=== PATIENT | male | born 1990 | race Caucasian/White ===

== ENCOUNTER 2017-11-18 11:17 | Emergency (ER) | payer BC ==
[2017-11-18] MEDS ORDERED: Sodium Chloride 0.9% 1,000 ML IV ONE (11:18)
--- NOTE | 2017-11-18 11:19 | EDM.PDOC ---
ED HPI GENERAL MEDICAL PROBLEM - General Stated Complaint: ABD PAIN Time Seen by Provider: 11/18/17 11:18 Source of Information: Reports: Patient History Limitations: Reports: No Limitations - History of Present Illness INITIAL COMMENTS - FREE TEXT/NARRATIVE: HISTORY AND PHYSICAL: History of present illness: Patient is a 27-year-old male who presents to the emergency room today with complaints of middle to right lower quadrant pain x 2-3 days. He states that " it hurts when I push in [right lower quadrant]". His appetite has decreased. States he has had some acid reflux type sytmpomts as well. He denies any fever, chills, chest pain or shortness of breath. Denies any nausea, vomiting, change in his urine/bowel pattern, and no blood in stools/ urine. Last ate or drank at Review of systems: As per history of present illness and below otherwise all systems reviewed and negative. Past medical history: As per history of present illness and as reviewed below otherwise noncontributory. Surgical history: As per history of present illness and as reviewed below otherwise noncontributory. Social history: No reported history of drug or alcohol abuse. Family history: As per history of present illness and as reviewed below otherwise noncontributory. Physical exam: General: Well-developed and well-nourished 27-year-old male. Alert and oriented. Nontoxic appearing and in no acute distress. HEENT: Atraumatic, normocephalic, pupils equal and reactive bilaterally, negative for conjunctival pallor or scleral icterus, mucous membranes moist, throat clear, neck supple, nontender, trachea midline. No drooling or trismus noted. No meningeal signs Lungs: Clear to auscultation, breath sounds equal bilaterally, chest nontender. Heart: S1S2, regular rate and rhythm without overt murmur Abdomen: Soft, nondistended, mid abdominal and right lower quadrant tenderness - +rebound tenderness. Negative for masses or hepatosplenomegaly. Negative for costovertebral tenderness. Pelvis: Stable nontender. Genitourinary: Deferred. Rectal: Deferred. Skin: Intact, warm, dry. No lesions or rashes noted. Extremities: Atraumatic, negative for cords or calf pain. Neurovascular unremarkable. Neuro: Awake, alert, oriented. Cranial nerves II through XII unremarkable. Cerebellum unremarkable. Motor and sensory unremarkable throughout. Exam nonfocal. Notes: Vital signs have been reviewed by me. Patient appears comfortable on the cot. I did offer him pain medication which he declined. Lab work is unremarkable. CT shows a normal appendix but with prominement mesenteric lymph nodes noted to the right lower quadrant (possible mesenteric adenitis). Diagnostics: CBC, CMP, UA, CT abdomen and pelvis Therapeutics: IV fluids, Zofran, Toradol Prescription: None Impression: Abdominal Pain Plan: 1. Cedar diet for the next 24-48 hours; advance as tolerated. Increase your oral fluids. 2. Tylenol and/or ibuprofen as needed for pain management. 3. Follow up with your primary care provider in the next 1-2 days. Return to the ED as needed and as discussed. Definitive disposition and diagnosis as appropriate pending reevaluation and review of above. Duration: Day(s): Location: Reports: Abdomen Right Abdomen Pain Score (Numeric/FACES): 0 - Related Data Allergies Allergy/AdvReac Type Severity Reaction Status Date / Time No Known Allergies Allergy Verified 11/18/17 11:48 Home Meds: Home Meds . [No Known Home Meds] 11/29/13 [History] Past Medical History - Past Health History Medical/Surgical History: Denies Medical/Surgical History ED ROS GENERAL - Review of Systems Review Of Systems: ROS reveals no pertinent complaints other than HPI. ED EXAM, GI/ABD - Physical Exam Exam: See Below (See dictation) Course - Vital Signs Last Recorded V/S: Last Vital Signs Temp 97.5 F 11/18/17 11:28 Pulse 82 11/18/17 11:28 Resp 20 11/18/17 11:28 BP 149/92 H 11/18/17 11:28 Pulse Ox 96 11/18/17 11:28 - Orders/Labs/Meds Orders: Active Orders 24 hr Category Date Time Status Abdomen Pelvis w Cont [CT] Stat Exams 11/18/17 11:34 Taken UA W/MICROSCOPIC [URIN] Stat Lab 11/18/17 11:19 Ordered Labs: Laboratory Tests 11/18/17 11/18/17 11/18/17 Range/Units 11:40 11:40 11:40 WBC 7.86 (4.0-11.0) K/uL RBC 5.08 (4.50-5.90) M/uL Hgb 15.7 (13.0-17.0) g/dL Hct 45.3 (38.0-50.0) % MCV 89.2 (80.0-98.0) fL MCH 30.9 (27.0-32.0) pg MCHC 34.7 (31.0-37.0) g/dL RDW Std Deviation 45.0 (28.0-62.0) fl RDW Coeff of Ricci 14 (11.0-15.0) % Plt Count 194 (150-400) K/uL MPV 11.60 (7.40-12.00) fL Neut % (Auto) 69.5 (48.0-80.0) % Lymph % (Auto) 20.4 (16.0-40.0) % Geary % (Auto) 8.5 (0.0-15.0) % Eos % (Auto) 1.5 (0.0-7.0) % Baso % (Auto) 0.1 (0.0-1.5) % Neut # (Auto) 5.5 (1.4-5.7) K/uL Lymph # (Auto) 1.6 (0.6-2.4) K/uL Geary # (Auto) 0.7 (0.0-0.8) K/uL Eos # (Auto) 0.1 (0.0-0.7) K/uL Baso # (Auto) 0.0 (0.0-0.1) K/uL Nucleated RBC % 0.0 /100WBC Nucleated RBCs # 0 K/uL Sodium 139 (136-148) mmol/L Potassium 4.2 (3.5-5.1) mmol/L Chloride 104 (98-107) mmol/L Carbon Dioxide 26.6 (21.0-32.0) mmol/L BUN 11 (7.0-18.0) mg/dL Creatinine 1.0 (0.8-1.3) mg/dL Est Cr Clr Drug Dosing 121.79 mL/min Estimated GFR (MDRD) > 60.0 ml/min Glucose 96 (74-106) mg/dL Calcium 9.5 (8.5-10.1) mg/dL Total Bilirubin 0.3 (0.2-1.0) mg/dL AST 15 (15-37) IU/L ALT 21 (14-63) IU/L Alkaline Phosphatase 55 (46-116) U/L Total Protein 7.6 (6.4-8.2) g/dL Albumin 4.1 (3.4-5.0) g/dL Globulin 3.5 (2.0-3.5) g/dL Albumin/Globulin Ratio 1.2 L (1.3-2.8) Amylase 34 (25-115) U/L Lipase 117 (73-393) U/L H. pylori IgG Antibody (NEG) 11/18/17 Range/Units 11:40 WBC (4.0-11.0) K/uL RBC (4.50-5.90) M/uL Hgb (13.0-17.0) g/dL Hct (38.0-50.0) % MCV (80.0-98.0) fL MCH (27.0-32.0) pg MCHC (31.0-37.0) g/dL RDW Std Deviation (28.0-62.0) fl RDW Coeff of Ricic (11.0-15.0) % Plt Count (150-400) K/uL MPV (7.40-12.00) fL Neut % (Auto) (48.0-80.0) % Lymph % (Auto) (16.0-40.0) % Geary % (Auto) (0.0-15.0) % Eos % (Auto) (0.0-7.0) % Baso % (Auto) (0.0-1.5) % Neut # (Auto) (1.4-5.7) K/uL Lymph # (Auto) (0.6-2.4) K/uL Geary # (Auto) (0.0-0.8) K/uL Eos # (Auto) (0.0-0.7) K/uL Baso # (Auto) (0.0-0.1) K/uL Nucleated RBC % /100WBC Nucleated RBCs # K/uL Sodium (136-148) mmol/L Potassium (3.5-5.1) mmol/L Chloride (98-107) mmol/L Carbon Dioxide (21.0-32.0) mmol/L BUN (7.0-18.0) mg/dL Creatinine (0.8-1.3) mg/dL Est Cr Clr Drug Dosing mL/min Estimated GFR (MDRD) ml/min Glucose (74-106) mg/dL Calcium (8.5-10.1) mg/dL Total Bilirubin (0.2-1.0) mg/dL AST (15-37) IU/L ALT (14-63) IU/L Alkaline Phosphatase (46-116) U/L Total Protein (6.4-8.2) g/dL Albumin (3.4-5.0) g/dL Globulin (2.0-3.5) g/dL Albumin/Globulin Ratio (1.3-2.8) Amylase (25-115) U/L Lipase (73-393) U/L H. pylori IgG Antibody NEGATIVE (NEG) Meds: Medications Discontinued Medications Generic Name Dose Route Start Last Admin Trade Name Freq PRN Reason Stop Dose Admin Sodium Chloride 1,000 mls @ 999 mls/hr 11/18/17 11:18 11/18/17 11:48 Normal Saline IV 11/18/17 12:18 999 mls/hr STAT ONE Administration Iopamidol 100 ml 11/18/17 12:26 11/18/17 12:44 Isovue Multipack-370 (76%) IVPUSH 11/18/17 12:27 100 ml ONETIME ONE Administration Ketorolac Tromethamine 30 mg 11/18/17 11:34 11/18/17 11:48 Toradol IVPUSH 11/18/17 11:35 30 mg ONETIME ONE Administration Ondansetron HCl 4 mg 11/18/17 11:34 11/18/17 11:48 Zofran IVPUSH 11/18/17 11:35 4 mg ONETIME ONE Administration Departure - Departure Time of Disposition: 13:39 Disposition: Home, Self-Care 01 Clinical Impression: Abdominal pain - Discharge Information Instructions: Abdominal Pain, Adult, [id number], Mesenteric Adenitis, Adult Referrals: PCP,None [Primary Care Provider] - Additional Instructions: The following information is given to patients seen in the emergency department who are being discharged to home. This information is to outline your options for follow-up care. We provide all patients seen in our emergency department with a follow-up referral. The need for follow-up, as well as the timing and circumstances, are variable depending upon the specifics of your emergency department visit. If you don't have a primary care physician on staff, we will provide you with a referral. We always advise you to contact your personal physician following an emergency department visit to inform them of the circumstance of the visit and for follow-up with them and/or the need for any referrals to a consulting specialist. The emergency department will also refer you to a specialist when appropriate. This referral assures that you have the opportunity for follow-up care with a specialist. All of these measure are taken in an effort to provide you with optimal care, which includes your follow-up. Under all circumstances we always encourage you to contact your private physician who remains a resource for coordinating your care. When calling for follow-up care, please make the office aware that this follow-up is from your recent emergency room visit. If for any reason you are refused follow-up, please contact the [facility] Emergency Department at and asked to speak to the emergency department charge nurse. [facility] Primary Care [address] [place] [address] 1. Cedar diet for the next 24-48 hours; advance as tolerated. Increase your oral fluids. 2. Tylenol and/or ibuprofen as needed for pain management. 3. Follow up with your primary care provider in the next 1-2 days. Return to the ED as needed and as discussed. - My Orders Last 24 Hours: My Active Orders 11/18/17 11:19 UA W/MICROSCOPIC [URIN] Stat 11/18/17 11:34 Abdomen Pelvis w Cont [CT] Stat - Assessment/Plan Last 24 Hours: My Active Orders 11/18/17 11:19 UA W/MICROSCOPIC [URIN] Stat 11/18/17 11:34 Abdomen Pelvis w Cont [CT] Stat
[2017-11-18] MEDS ORDERED: Ondansetron 4 MG/2 ML SDV IVPUSH ONE (11:34)
[2017-11-18] MEDS ORDERED: Ketorolac 30 MG/ML SDV IVPUSH ONE (11:34)
[2017-11-18 12:18] LABS: CHLORIDE,CL 104 mmol/L (98-107); SODIUM,NA 139 mmol/L (136-148)
[2017-11-18] MEDS ORDERED: Iopamidol 755 MG/ML 200 ML Multipack Bottle IVPUSH ONE (12:26)
--- NOTE | 2017-11-19 09:37 | CT ---
EXAM DATE: 11/18/17 PATIENT'S AGE: 27 Patient: WATSON CLARK Facility: [place], [place] Site . Site : 1990 Study: CT Abdomen/Pelvis [id number]/12/2018 12:53:49 PM Ordering Physician: Doctor Mcknight Final Report: INDICATION: Right lower quadrant pain. TECHNIQUE: Volumetric helical scanning of the abdomen and pelvis was performed with 100 cc of Isovue 370 contrast material IV. Coronal and sagittal reconstructions were obtained. COMPARISON: None. FINDINGS: There is no evidence of bowel obstruction or inflammation. The appendix is normal. No free fluid or free air is demonstrated. Some prominent mesenteric lymph nodes in the right lower quadrant are noted with the largest on image 91 of series 201, measuring 1.2 x 1.2 x 1.0 cm. No lymphadenopathy is evident otherwise. The liver is normal in size, shape and attenuation. No bile duct dilation is evident. The spleen is within normal limits. The adrenal glands are unremarkable. The pancreas is within normal limits. The kidneys are unremarkable. The prostate is within normal limits. The lung bases are clear. The heart is normal in size. IMPRESSION: Question mesenteric adenitis in the right lower quadrant. Otherwise unremarkable. Please note that all CT scans at this facility use dose modulation, iterative reconstruction, and/or weight-based dosing when appropriate to reduce radiation dose to as low as reasonably achievable. Dictated by Luciano Carias MD @ Nov 18 2017 1:26PM (Electronic Signature) Report Signed by Proxy. [facility]
== END 2017-11-18 13:44 | disposition home or self-care (01) ==
LOC: MW.ED 11:17
DX: R10.813 Right lower quadrant abdominal tenderness (principal)
CPT/HCPCS: 36415; 74177; 80053; 82150; 83690; 85025; 86677; 96361; 96374; 96375; 99284; J1885; J2405; J7040; Q9967; 99283

== ENCOUNTER 2018-09-30 14:21 | Emergency (ER) | payer BC ==
--- NOTE | 2018-09-30 15:04 | EDM.PDOC ---
<Louisa Berry - Last Filed: 09/30/18 15:23> ED HPI GENERAL MEDICAL PROBLEM - General Chief Complaint: Lower Extremity Injury/Pain Stated Complaint: LT FOOT PAIN Time Seen by Provider: 09/30/18 14:24 Source of Information: Reports: Patient History Limitations: Reports: No Limitations - History of Present Illness INITIAL COMMENTS - FREE TEXT/NARRATIVE: HISTORY AND PHYSICAL: History of present illness: 28-year-old male presents with complaints of left ankle foot pain after a piece of equipment fell on it a couple days ago. He indicates he has been using crutches at home applying ice and elevating and chose not to come into the emergency department until today as he wanted the swelling to go down. Soft tissue swelling continues to be noted around the ankle. No ecchymosis is noted however there is some pink tones to the lower extremity from where the equipment fell and rolled down his leg. He has been using naproxen and ibuprofen at home for pain control and feels that is controlling his pain adequately. Review of systems: As per history of present illness and below otherwise all systems reviewed and negative. Past medical history: As per history of present illness and as reviewed below otherwise noncontributory. Surgical history: As per history of present illness and as reviewed below otherwise noncontributory. Social history: No reported history of drug or alcohol abuse. Family history: As per history of present illness and as reviewed below otherwise noncontributory. Physical exam: General: Well-nourished well-developed 28-year-old male is alert and oriented. In no acute distress. HEENT: Atraumatic, normocephalic, pupils reactive, negative for conjunctival pallor or scleral icterus, mucous membranes moist, throat clear, neck supple, nontender, trachea midline. Lungs: Clear to auscultation, breath sounds equal bilaterally, chest nontender. Heart: S1S2, regular, negative for clicks, rubs, or JVD. Abdomen: Soft, nondistended, nontender. Negative for masses or hepatosplenomegaly. Negative for costovertebral tenderness. Pelvis: Stable nontender. Genitourinary: Deferred. Rectal: Deferred. Extremities: Pain with palpation of the etiology and lateral malleolus of the left lower extremity. Mild to minimal tenderness with palpation of the foot. He is able to flex and extend although this does cause pain. Generalized mild soft tissue swelling of the anterior foot and ankle, negative for cords or calf pain. Neurovascular unremarkable. Skin: Intact, warm, dry. No lesions, rashes are noted. Neuro: Awake, alert, oriented. Cranial nerves II through XII unremarkable. Cerebellum unremarkable. Motor and sensory unremarkable throughout. Exam nonfocal. Notes: Patient presents today for left ankle pain in no acute distress. Indicates he has been using crutches however left them in the car to come into the ED. X-ray shows a nondisplaced fracture involving the distal calf assess of the second metatarsal. Will place patient in a cam walker boot and provided crutches. Encouraged him to follow up with podiatry or the orthopedic provider for reevaluation and further management. He voices understanding and is agreeable to plan of care. Denies any further questions or concerns at this time. Diagnostics: Left ankle and foot x-ray Therapeutics: Kathryn (#20) Impression: Left ankle injury Left nondisplaced fracture of the distal metaphysis of the second metatarsal Plan: 1. Continue to elevate and ice and rest extremity. Continue to use crutches as indicated. 2. Continue to use ibuprofen naproxen or Tylenol for discomfort previously discussed. [place] for moderate to severe pain. This medication may cause drowsiness so do not take it while driving or needing to be functioning outside of the house. 3. Follow-up with orthopedics or podiatry as previously discussed. Please call to set up this appointment and return to ED as previously discussed Definitive disposition and diagnosis as appropriate pending reevaluation and review of above. left foot & ankle Pain Score (Numeric/FACES): 7 - Related Data Allergies Allergy/AdvReac Type Severity Reaction Status Date / Time No Known Allergies Allergy Verified 09/30/18 14:34 Home Meds: Home Meds . [No Known Home Meds] 11/29/13 [History] Past Medical History - Past Health History Medical/Surgical History: Denies Medical/Surgical History - Infectious Disease History Infectious Disease History: Reports: Chicken Pox - Past Surgical History Other Musculoskeletal Surgeries/Procedures:: elbow surgery when he was 8 Social & Family History - Family History Family Medical History: Noncontributory - Tobacco Use Smoking Status *Q: Current Every Day Smoker Years of Tobacco use: 12 Packs/Tins Daily: 1 - Caffeine Use Caffeine Use: Reports: Coffee - Recreational Drug Use Recreational Drug Use: Yes Drug Use in Last 12 Months: Yes Recreational Drug Type: Reports: Marijuana/Hashish Recreational Drug Use Frequency: Daily Review of Systems - Review of Systems Review Of Systems: ROS reveals no pertinent complaints other than HPI. ED EXAM, GENERAL - Physical Exam Exam: See Below (See dictation) Course - Vital Signs Last Recorded V/S: Last Vital Signs Temp 98.3 F 09/30/18 14:31 Pulse 85 09/30/18 14:31 Resp 16 09/30/18 14:31 BP 153/89 H 09/30/18 14:31 Pulse Ox 95 09/30/18 14:31 - Orders/Labs/Meds Orders: Active Orders 24 hr Category Date Time Status DME for Discharge [COMM] Stat Oth 09/30/18 15:22 Ordered Departure - Departure Time of Disposition: 15:26 Disposition: Home, Self-Care 01 Clinical Impression: Left ankle injury Qualifiers: Encounter type: initial encounter Qualified Code(s): S99.912A - Unspecified injury of left ankle, initial encounter Metatarsal fracture Qualifiers: Encounter type: initial encounter Metatarsal bone: second Fracture type: closed Fracture alignment: nondisplaced Laterality: left Qualified Code(s): S92.325A - Nondisplaced fracture of second metatarsal bone, left foot, initial encounter for closed fracture - Discharge Information Instructions: Metatarsal Fracture Referrals: PCP,None [Primary Care Provider] - Forms: ED Department Discharge Additional Instructions: My general discharge The following information is given to patients seen in the emergency department who are being discharged to home. This information is to outline your options for follow-up care. We provide all patients seen in our emergency department with a follow-up referral. The need for follow-up, as well as the timing and circumstances, are variable depending upon the specifics of your emergency department visit. If you don't have a primary care physician on staff, we will provide you with a referral. We always advise you to contact your personal physician following an emergency department visit to inform them of the circumstance of the visit and for follow-up with them and/or the need for any referrals to a consulting specialist. The emergency department will also refer you to a specialist when appropriate. This referral assures that you have the opportunity for follow-up care with a specialist. All of these measure are taken in an effort to provide you with optimal care, which includes your follow-up. Under all circumstances we always encourage you to contact your private physician who remains a resource for coordinating your care. When calling for follow-up care, please make the office aware that this follow-up is from your recent emergency room visit. If for any reason you are refused follow-up, please contact the [facility] Emergency Department at and asked to speak to the emergency department charge nurse. [facility] - Primary Care [address] [place] [id number] [facility] Professional [facility] [address] [place] [address], [address] [place] [address] [address] [address] 1. Continue to elevate and ice and rest extremity. Continue to use crutches as indicated. 2. Continue to use ibuprofen naproxen or Tylenol for discomfort previously discussed. [place] for moderate to severe pain. This medication may cause drowsiness so do not take it while driving or needing to be functioning outside of the house. 3. Follow-up with orthopedics or podiatry as previously discussed. Please call to set up this appointment and return to ED as previously discussed - My Orders Last 24 Hours: My Active Orders 09/30/18 15:22 DME for Discharge [COMM] Stat - Assessment/Plan Last 24 Hours: My Active Orders 09/30/18 15:22 DME for Discharge [COMM] Stat <Ginny Augustine E - Last Filed: 09/30/18 19:50> ED HPI GENERAL MEDICAL PROBLEM - History of Present Illness INITIAL COMMENTS - FREE TEXT/NARRATIVE: I did physically see this patient and evaluate myself. I agree with the above dictation and physical assessment. We discussed the need for appropriate follow- up with the orthopedic provider. Cam walker boot and crutches given along with education. Patient refuses the cam walker boot, regardless of education. Medication and supportive care measures were reviewed and discussed. He denies any further questions or concerns at this time.
--- NOTE | 2018-09-30 15:12 | CR ---
EXAMINATION: Left foot and left ankle HISTORY: Pain COMPARISON: None TECHNIQUE: 2 views of the left foot and 3 views of the left ankle FINDINGS: There is a nondisplaced fracture involving the distal metaphysis of the second metatarsal. The remaining osseous structures and joint spaces are preserved. Bone mineralization is otherwise normal. Ankle mortise and talar dome are intact. IMPRESSION: 1. Nondisplaced distal second metatarsal fracture.
== END 2018-09-30 15:48 | disposition home or self-care (01) ==
LOC: MW.ED 14:21
DX: S92.325A Nondisplaced fracture of second metatarsal bone, left foot, initial encounter for closed fracture (principal); S99.912A Unspecified injury of left ankle, initial encounter; F17.210 Nicotine dependence, cigarettes, uncomplicated; W20.8XXA Other cause of strike by thrown, projected or falling object, initial encounter
CPT/HCPCS: 73610-26-LT; 73610-LT; 73620-26-LT; 73620-LT; 99283; 99283-25

== ENCOUNTER 2019-06-08 19:04 | Inpatient (IN) | payer MEDICAID ==
--- NOTE | 2019-06-08 19:53 | EDM.PDOC ---
ED HPI GENERAL MEDICAL PROBLEM - General Chief Complaint: General Stated Complaint: POSSIBLE HERNIA Time Seen by Provider: 06/08/19 19:22 Source of Information: Reports: Patient - History of Present Illness INITIAL COMMENTS - FREE TEXT/NARRATIVE: CC HPI: This is a pleasant 28-year-old male who presents sudden onset right inguinal swelling and pain. No vomiting no fever no dysuria or hematuria no urethral discharge PMHX/PSHX: Negative Social History: Negative for tobacco, negative for alcohol, negative for street drugs or marijuana Family history: Hypertension ROS: see chart PE: VS afebrile vital signs stable General: No apparent distress Head: Atraumatic normocephalic no lumps bumps or bruises Eyes: EOMI PERRLA Ears: TMs intact no hemotympanum no signs of infection no mastoid tenderness Nose: No epistaxis nares patent no septal wall hematoma Throat: No pharyngeal erythema or exudate no tonsillar enlargement Neck: Supple, no cervical lymphadenopathy Chest wall: No point tenderness Heart: Regular rate and rhythm without murmur gallop or rub Lungs: Clear to auscultation and percussion without rales rhonchi or wheeze Abdomen: Soft nontender nondistended without guarding rigidity or rebound patient has some's slight swelling over the right inguinal ligament Genitalia: He is circumcised. No signs of an indirect hernia. No testicular tenderness no scrotal edema Neck: No spinal point tenderness full range of motion in all 6 directions Back: No spinal paraspinal or CVA tenderness Extremities: full rom through out. no effusions skin: Warm dry intact no rashes neurologic: cranial nerves II through XII intact. No focal motor or sensory deficits noted MDM: Differential diagnosis: Spignalien hernia, direct inguinal hernia ED course: Labs remarkable CT scan was obtained to rule out a hernia however that suggested the possibility of a DVT. I then ordered an ultrasound which showed a mass behind the vessels which may be causing a mass-effect caused a localized thrombus which is nonocclusive the question is that mass could be a abscess or necrotic lymph node is unclear so I consulted the general surgeon and he asked me to admit the patient to hospitalist service. He said that we could let the hospitalist decide whether or not to start the patient on antibiotics. Patient is tender in that area but is otherwise stable for admission to the floor Diagnosis: Abscess versus necrotic lymph node to right inguinal area Disposition: Admit Right Lower Abdomen Pain Score (Numeric/FACES): 2 - Related Data Allergies Allergy/AdvReac Type Severity Reaction Status Date / Time No Known Allergies Allergy Verified 06/08/19 19:14 Home Meds: Home Meds . [No Known Home Meds] 11/29/13 [History] Past Medical History - Past Health History Medical/Surgical History: Denies Medical/Surgical History - Infectious Disease History Infectious Disease History: Reports: None - Past Surgical History Other Musculoskeletal Surgeries/Procedures:: elbow surgery when he was 8 Social & Family History - Family History Family Medical History: Noncontributory - Tobacco Use Smoking Status *Q: Former Smoker Used Tobacco, but Quit: Yes Month/Year Tobacco Last Used: 2019 - Caffeine Use Caffeine Use: Reports: Coffee - Recreational Drug Use Recreational Drug Use: Yes Recreational Drug Type: Reports: Marijuana/Hashish Other Recreational Drug Type: used today ED ROS GENERAL - Review of Systems Review Of Systems: Comprehensive ROS is negative, except as noted in HPI. ED EXAM, GENERAL - Physical Exam Exam: See Below Free Text/Narrative:: See my H&P Course - Vital Signs Last Recorded V/S: Last Vital Signs Temp 36.7 C 06/08/19 23:20 Pulse 66 06/08/19 23:20 Resp 16 06/08/19 23:20 BP 135/77 06/08/19 23:20 Pulse Ox 97 06/08/19 23:20 - Orders/Labs/Meds Orders: Active Orders 24 hr Category Date Time Status CRP [C-REACTIVE PROTEIN] [CHEM] Stat Lab 06/08/19 23:34 Ordered LACTATE WITH REFLEX [BG] Stat Lab 06/08/19 23:34 Ordered SEDIMENTATION RATE AUTO [HEME] Stat Lab 06/08/19 23:33 Ordered Labs: Laboratory Tests 06/08/19 06/08/19 Range/Units 19:40 19:40 WBC 11.32 H (4.0-11.0) K/uL RBC 4.56 (4.50-5.90) M/uL Hgb 14.0 (13.0-17.0) g/dL Hct 42.7 (38.0-50.0) % MCV 93.6 (80.0-98.0) fL MCH 30.7 (27.0-32.0) pg MCHC 32.8 (31.0-37.0) g/dL RDW Std Deviation 47.1 (28.0-62.0) fl RDW Coeff of Ricci 14 (11.0-15.0) % Plt Count 215 (150-400) K/uL MPV 11.90 (7.40-12.00) fL Neut % (Auto) 72.3 (48.0-80.0) % Lymph % (Auto) 19.2 (16.0-40.0) % [place] % (Auto) 7.9 (0.0-15.0) % Eos % (Auto) 0.4 (0.0-7.0) % Baso % (Auto) 0.2 (0.0-1.5) % Neut # (Auto) 8.2 H (1.4-5.7) K/uL Lymph # (Auto) 2.2 (0.6-2.4) K/uL [place] # (Auto) 0.9 H (0.0-0.8) K/uL Eos # (Auto) 0.0 (0.0-0.7) K/uL Baso # (Auto) 0.0 (0.0-0.1) K/uL Nucleated RBC % 0.0 /100WBC Nucleated RBCs # 0 K/uL Sodium 141 (136-148) mmol/L Potassium 3.9 (3.5-5.1) mmol/L Chloride 105 (98-107) mmol/L Carbon Dioxide 27.2 (21.0-32.0) mmol/L BUN 11 (7.0-18.0) mg/dL Creatinine 0.8 (0.8-1.3) mg/dL Est Cr Clr Drug Dosing 159.83 mL/min Estimated GFR (MDRD) > 60.0 ml/min Glucose 91 (74-106) mg/dL Calcium 9.3 (8.5-10.1) mg/dL Meds: Medications Discontinued Medications Generic Name Dose Route Start Last Admin Trade Name Freq PRN Reason Stop Dose Admin Iopamidol 100 ml 06/08/19 20:11 06/08/19 20:33 Isovue Multipack-370 (76%) IVPUSH 06/08/19 20:12 100 ml ONETIME STA Administration Departure - Departure Time of Disposition: 23:39 Disposition: Admitted As Inpatient 66 Clinical Impression: Abdominal pain Qualifiers: Abdominal location: right lower quadrant Qualified Code(s): R10.31 - Right lower quadrant pain - Discharge Information Referrals: PCP,None [Primary Care Provider] - Forms: ED Department Discharge Sepsis Event Note - Evaluation Sepsis Screening Result: No Definite Risk - Focused Exam Vital Signs: Vital Signs Temp Pulse Resp BP Pulse Ox 06/08/19 23:20 36.7 C 66 16 135/77 97 06/08/19 21:00 74 16 134/73 96 06/08/19 19:14 36.3 C 74 17 132/82 97 Date Exam was Performed: 06/08/19 Time Exam was Performed: 23:35 - My Orders Last 24 Hours: My Active Orders 06/08/19 23:33 SEDIMENTATION RATE AUTO [HEME] Stat 06/08/19 23:34 CRP [C-REACTIVE PROTEIN] [CHEM] Stat LACTATE WITH REFLEX [BG] Stat - Assessment/Plan Last 24 Hours: My Active Orders 06/08/19 23:33 SEDIMENTATION RATE AUTO [HEME] Stat 06/08/19 23:34 CRP [C-REACTIVE PROTEIN] [CHEM] Stat LACTATE WITH REFLEX [BG] Stat
[2019-06-08 20:04] LABS: BLOOD UREA NITROGEN,BUN 11 mg/dL (7.0-18.0); CARBON DIOXIDE,CO2 27.2 mmol/L (21.0-32.0); CHLORIDE,CL 105 mmol/L (98-107); GLUCOSE RANDOM 91 mg/dL (74-106); POTASSIUM,K 3.9 mmol/L (3.5-5.1); SODIUM,NA 141 mmol/L (136-148)
[2019-06-08] MEDS ORDERED: Iopamidol 755 MG/ML 200 ML Multipack Bottle IVPUSH STA (20:11)
--- NOTE | 2019-06-08 20:55 | CT ---
CT abdomen and pelvis Technique: Multiple axial sections were obtained from above the dome of the diaphragm inferiorly through the pubic symphysis. Intravenous contrast was utilized. No oral contrast has been given. Comparison: Prior CT abdomen and pelvis exam of 11/18/17. Findings: Visualized lung bases show nothing acute. Liver contains no focal parenchymal abnormality. Spleen appears within normal limits. Adrenal glands show no nodule. Pancreas shows no discrete abnormality. Gallbladder contains no calcified gallstones. Aorta shows no aneurysm. No retroperitoneal adenopathy or mesenteric abnormalities are seen. No pelvic mass or adenopathy is identified. Appendix is seen and appears normal in size. No free fluid or inflammatory change is identified within the abdomen or within the pelvis. Bone window settings were reviewed. No acute osseous finding is seen. Small low density finding is noted within the right inguinal region. This finding measures about 1.6 cm in size. There is surrounding soft tissue density around this finding which extends around the common femoral vessels. There is clot within the right common femoral vein and this low density finding most likely represents dilated common femoral vein containing clot with surrounding inflammatory change. Clot continues into the proximal right superficial femoral vein with distal portions of the clot not being seen on this exam. Impression: 1. Low density area within the right inguinal region believed to represent dilated common femoral vein containing thrombus. Additional thrombus is seen more distally on the right side extending into the proximal superficial femoral vein. Distal extent of this thrombus is not seen on this exam. 2. Inflammatory change is seen around this clot within the right inguinal region. 3. No additional abnormality is seen on CT study of the abdomen and pelvis. Note: Findings compatible with deep venous thrombosis within the visualized right lower extremity. Diagnostic code #5 This report was dictated in [place] Standard Time
--- NOTE | 2019-06-08 23:08 | US ---
HISTORY: Upper right leg pain and swelling. TECHNIQUE: Ultrasound of the right lower extremity deep veins using hernandez-scale, color Doppler, and spectral Doppler. COMPARISON: None. FINDINGS: Common femoral vein and proximal segment of the femoral vein are partially compressible. Vessel lumens are poorly visualized. There is color Doppler signal within at least portions of the lumens of the partially compressible segments of the common femoral and femoral veins. Mid and distal segments of the femoral vein are patent and compressible. Popliteal vein is patent and compressible. - Posterior tibial and peroneal veins are patent. - 3 x 2.5 x 2.3 cm complex hypoechoic process in the right inguinal region. No images of this region were obtained with Doppler imaging. IMPRESSION: 1. Incompletely compressible right common femoral vein and proximal segment of the femoral vein. Vessel lumens are poorly visualized. In correlation with the CT however findings are compatible with nonocclusive DVT. 2. 3 x 2.5 x 2.3 cm complex masslike process in the right inguinal region. This likely corresponds to the hypodense abnormality adjacent to the proximal right common femoral vein on CT. Differential includes subacute hematoma, abscess (possibly related to thrombophlebitis), less likely necrotic lymph node or mass. --- Called to Dr Law Concepcion on 06/08/19 at 2305 hours. Dictated by Everton Linn MD @ Jun 08 2019 10:22PM (Electronically Signed)
[2019-06-09] MEDS ORDERED: Heparin Sodium 5,000 Units/ML Vial IVPUSH ONE ×2 (00:30→18:53)
[2019-06-09] MEDS ORDERED: Heparin Sod,Pork In 0.45% Nacl 25,000 UNIT/500 ML IV.SOLN IV SCH (00:30)
[2019-06-09] MEDS: Heparin Sod,Pork In 0.45% Nacl 25,000 UNIT/500 ML IV.SOLN IV SCH ×2 (00:58→21:37)
[2019-06-09] MEDS ORDERED: Acetaminophen 325 MG Tab PO PRN (01:21)
--- NOTE | 2019-06-09 01:44 | PCM.HP.2 ---
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 In the ED he had a CT scan of the abdomen and pelvis that was suggestive of a DVT of the right common femoral vein with surronding inflammation, Ultrasound of the leg reported incompletely compressable right common femoral vein and a 3 by 2 cm mass like complex in the right inguinal region. Right Lower Abdomen Pain Score (Numeric/FACES): 2 - Related Data Allergies/Adverse Reactions: Allergies Allergy/AdvReac Type Severity Reaction Status Date / Time No Known Allergies Allergy Verified 06/09/19 03:14 Home Medications: Home Meds Clindamycin HCl 300 mg PO TID 5 Days #15 capsule 06/11/19 [Rx] Enoxaparin Sodium [Lovenox] 135 mg SQ DAILY 8 Days #8 ml 06/11/19 [Rx] Warfarin [Coumadin] 10 mg PO DAILY 15 Days #15 tab 06/11/19 [Rx] Past Medical History - Past Health History Medical/Surgical History: Denies Medical/Surgical History - Infectious Disease History Infectious Disease History: Reports: None - Past Surgical History Other Musculoskeletal Surgeries/Procedures:: elbow surgery when he was 8 Social & Family History - Family History Family Medical History: Noncontributory - Tobacco Use Smoking Status *Q: Former Smoker Used Tobacco, but Quit: Yes Month/Year Tobacco Last Used: 2019 - Caffeine Use Caffeine Use: Reports: Coffee - Recreational Drug Use Recreational Drug Use: Yes Recreational Drug Type: Reports: Marijuana/Hashish Other Recreational Drug Type: used today H&P Review of Systems - Review of Systems: Review Of Systems: Comprehensive ROS is negative, except as noted in HPI. Exam - Exam Exam: See Below - Vital Signs Vital Signs: Last Vital Signs Temp 36.7 C 06/08/19 23:20 Pulse 72 06/09/19 00:53 Resp 16 06/09/19 00:53 BP 132/84 06/09/19 00:53 Pulse Ox 97 06/09/19 00:53 Weight: 90.718 kg - Exam General: Alert, Oriented HEENT: Mucosa Moist & [place] Neck: Supple Lungs: Clear to Auscultation, Normal Respiratory Effort Cardiovascular: Regular Rate, Regular Rhythm GI/Abdominal Exam: Normal Bowel Sounds, Soft, Non-Tender (Male) Exam: Other (mild edema and erythem of the right lower inguinal region ). No: Penile Lesions, Scrotal Swelling, Scrotum Tenderness (L), Scrotum Tenderness (R) Extremities: Non-Tender, No Pedal Edema Skin: Warm, Dry, Intact - Patient Data Lab Results Last 24 hrs: Laboratory Results - last 24 hr 06/08/19 06/08/19 06/09/19 Range/Units 19:40 19:40 00:25 WBC 11.32 H (4.0-11.0) K/uL RBC 4.56 (4.50-5.90) M/uL Hgb 14.0 (13.0-17.0) g/dL Hct 42.7 (38.0-50.0) % MCV 93.6 (80.0-98.0) fL MCH 30.7 (27.0-32.0) pg MCHC 32.8 (31.0-37.0) g/dL RDW Std Deviation 47.1 (28.0-62.0) fl RDW Coeff of Ricci 14 (11.0-15.0) % Plt Count 215 (150-400) K/uL MPV 11.90 (7.40-12.00) fL Neut % (Auto) 72.3 (48.0-80.0) % Lymph % (Auto) 19.2 (16.0-40.0) % [place] % (Auto) 7.9 (0.0-15.0) % Eos % (Auto) 0.4 (0.0-7.0) % Baso % (Auto) 0.2 (0.0-1.5) % Neut # (Auto) 8.2 H (1.4-5.7) K/uL Lymph # (Auto) 2.2 (0.6-2.4) K/uL [place] # (Auto) 0.9 H (0.0-0.8) K/uL Eos # (Auto) 0.0 (0.0-0.7) K/uL Baso # (Auto) 0.0 (0.0-0.1) K/uL Nucleated RBC % 0.0 /100WBC Nucleated RBCs # 0 K/uL ESR 10 (0-14) mm/hr Lactate (0.20-2.00) mmol/L Sodium 141 (136-148) mmol/L Potassium 3.9 (3.5-5.1) mmol/L Chloride 105 (98-107) mmol/L Carbon Dioxide 27.2 (21.0-32.0) mmol/L BUN 11 (7.0-18.0) mg/dL Creatinine 0.8 (0.8-1.3) mg/dL Est Cr Clr Drug Dosing 159.83 mL/min Estimated GFR (MDRD) > 60.0 ml/min Glucose 91 (74-106) mg/dL Calcium 9.3 (8.5-10.1) mg/dL C-Reactive Protein (0.00-0.90) mg/dL 06/09/19 06/09/19 Range/Units 00:35 00:35 WBC (4.0-11.0) K/uL RBC (4.50-5.90) M/uL Hgb (13.0-17.0) g/dL Hct (38.0-50.0) % MCV (80.0-98.0) fL MCH (27.0-32.0) pg MCHC (31.0-37.0) g/dL RDW Std Deviation (28.0-62.0) fl RDW Coeff of Ricci (11.0-15.0) % Plt Count (150-400) K/uL MPV (7.40-12.00) fL Neut % (Auto) (48.0-80.0) % Lymph % (Auto) (16.0-40.0) % [place] % (Auto) (0.0-15.0) % Eos % (Auto) (0.0-7.0) % Baso % (Auto) (0.0-1.5) % Neut # (Auto) (1.4-5.7) K/uL Lymph # (Auto) (0.6-2.4) K/uL [place] # (Auto) (0.0-0.8) K/uL Eos # (Auto) (0.0-0.7) K/uL Baso # (Auto) (0.0-0.1) K/uL Nucleated RBC % /100WBC Nucleated RBCs # K/uL ESR (0-14) mm/hr Lactate 0.7 (0.20-2.00) mmol/L Sodium (136-148) mmol/L Potassium (3.5-5.1) mmol/L Chloride (98-107) mmol/L Carbon Dioxide (21.0-32.0) mmol/L BUN (7.0-18.0) mg/dL Creatinine (0.8-1.3) mg/dL Est Cr Clr Drug Dosing mL/min Estimated GFR (MDRD) ml/min Glucose (74-106) mg/dL Calcium (8.5-10.1) mg/dL C-Reactive Protein 6.30 H (0.00-0.90) mg/dL Result Diagrams: 06/11/19 05:59 06/11/19 05:59 Sepsis Event Note - Evaluation Sepsis Screening Result: No Definite Risk - Focused Exam Vital Signs: Vital Signs Temp Pulse Resp BP Pulse Ox 06/09/19 00:53 72 16 132/84 97 06/08/19 23:20 36.7 C 66 16 135/77 97 06/08/19 21:00 74 16 134/73 96 06/08/19 19:14 36.3 C 74 17 132/82 97 Date Exam was Performed: 06/11/19 Time Exam was Performed: 15:07 Problem List Initiated/Reviewed/Updated: Yes Orders Last 24hrs: Active Orders 24 hr Category Date Time Status Admission Status [Patient Status] [ADT] Stat ADT 06/08/19 23:46 Active Oxygen Therapy [RC] PRN Care 06/09/19 01:27 Ordered Up ad Leti [RC] ASDIRECTED Care 06/09/19 01:21 Ordered VTE/DVT Education [RC] PER UNIT ROUTINE Care 06/09/19 01:27 Ordered Vital Signs [RC] Q4H Care 06/09/19 01:27 Ordered Regular Diet [DIET] Diet 06/09/19 Breakfast Ordered BASIC METABOLIC PANEL,BMP [CHEM] AM Lab 06/09/19 05:11 Ordered CBC WITH AUTO DIFF [HEME] AM Lab 06/09/19 05:11 Ordered CULTURE BLOOD [BC] Stat Lab 06/08/19 23:52 Ordered CULTURE BLOOD [BC] Stat Lab 03/01/20 23:52 Ordered DRUG SCREEN, URINE [URCHEM] Stat Lab 06/08/19 23:44 Ordered Acetaminophen [Tylenol] Med 06/09/19 01:21 Ordered 650 mg PO Q4H PRN Heparin Sod,Pork In 0.45% Nacl [Heparin-1/2Ns 25,000 Med 06/09/19 01:00 Active Units/500] 25,000 unit in 500 ml IV TITRATE Pharmacy to Dose - Vancomycin Med 06/09/19 01:15 Ordered 1 dose .XX ASDIRECTED Vancomycin 1 gm Med 06/09/19 00:24 Active Sodium Chloride 0.9% [Normal Saline (AdvBag)] 250 ml IV ONETIME Vancomycin 500 mg Med 06/09/19 01:30 Active Sodium Chloride 0.9% [Normal Saline] 100 ml IV ONETIME Blood Culture x2 Reflex Set [OM.PC] Stat Oth 06/08/19 23:52 Ordered Resuscitation Status Routine Resus Stat 06/09/19 01:21 Ordered Medication Orders Acetaminophen (Tylenol) 650 mg PO Q4H PRN PRN Reason: Pain (Mild 1-3)/fever Vancomycin HCl 1 gm/ Sodium (Chloride) 250 mls @ 166 mls/hr IV ONETIME ONE Stop: 06/09/19 01:54 Last Admin: 06/09/19 00:54 Dose: 166 mls/hr Heparin Sodium/Sodium Chloride (Heparin-1/2ns 25,000 Units/500) 25,000 unit in 500 mls @ 32.658 mls/hr IV TITRATE MELLISSA; Protocol Last Admin: 06/09/19 00:58 Dose: 18 units/kg/hr, 32.658 mls/hr Vancomycin HCl 500 mg/ Sodium (Chloride) 100 mls @ 100 mls/hr IV ONETIME ONE Stop: 06/09/19 02:29 Vancomycin HCl (Pharmacy To Dose - Vancomycin) 1 dose .XX ASDIRECTED MELLISSA Assessment/Plan Comment:: 28 yo male admitted with right femoral DVT with adjacent mass, possible lymph nod or abscess. We will treat with heparin drip and vancomycin. General Surgery has been consulted in the ED.
[2019-06-09 05:56] LABS: BLOOD UREA NITROGEN,BUN 9 mg/dL (7.0-18.0); CARBON DIOXIDE,CO2 27.7 mmol/L (21.0-32.0); CHLORIDE,CL 105 mmol/L (98-107); GLUCOSE RANDOM 90 mg/dL (74-106); POTASSIUM,K 3.7 mmol/L (3.5-5.1); SODIUM,NA 141 mmol/L (136-148)
--- NOTE | 2019-06-09 11:22 | PCM.PN ---
- General Info Date of Service: 06/09/19 Subjective Update: No acute events overnight. Right inguinal pain is tolerable rated 3/10. No chest pain, dyspnea, abdominal pain. - Patient Data Vitals - Most Recent: Last Vital Signs Temp 36.2 C 06/09/19 07:59 Pulse 61 06/09/19 07:59 Resp 16 06/09/19 07:59 BP 118/68 06/09/19 07:59 Pulse Ox 97 06/09/19 07:59 Weight - Most Recent: 90.9 kg Lab Results Last 24 Hours: Laboratory Results - last 24 hr 06/08/19 06/08/19 06/09/19 Range/Units 19:40 19:40 00:25 WBC 11.32 H (4.0-11.0) K/uL RBC 4.56 (4.50-5.90) M/uL Hgb 14.0 (13.0-17.0) g/dL Hct 42.7 (38.0-50.0) % MCV 93.6 (80.0-98.0) fL MCH 30.7 (27.0-32.0) pg MCHC 32.8 (31.0-37.0) g/dL RDW Std Deviation 47.1 (28.0-62.0) fl RDW Coeff of Ricci 14 (11.0-15.0) % Plt Count 215 (150-400) K/uL MPV 11.90 (7.40-12.00) fL Neut % (Auto) 72.3 (48.0-80.0) % Lymph % (Auto) 19.2 (16.0-40.0) % Kings % (Auto) 7.9 (0.0-15.0) % Eos % (Auto) 0.4 (0.0-7.0) % Baso % (Auto) 0.2 (0.0-1.5) % Neut # (Auto) 8.2 H (1.4-5.7) K/uL Lymph # (Auto) 2.2 (0.6-2.4) K/uL Kings # (Auto) 0.9 H (0.0-0.8) K/uL Eos # (Auto) 0.0 (0.0-0.7) K/uL Baso # (Auto) 0.0 (0.0-0.1) K/uL Nucleated RBC % 0.0 /100WBC Nucleated RBCs # 0 K/uL ESR 10 (0-14) mm/hr APTT (18.6-31.3) SEC Lactate (0.20-2.00) mmol/L Sodium 141 (136-148) mmol/L Potassium 3.9 (3.5-5.1) mmol/L Chloride 105 (98-107) mmol/L Carbon Dioxide 27.2 (21.0-32.0) mmol/L BUN 11 (7.0-18.0) mg/dL Creatinine 0.8 (0.8-1.3) mg/dL Est Cr Clr Drug Dosing 159.83 mL/min Estimated GFR (MDRD) > 60.0 ml/min Glucose 91 (74-106) mg/dL Calcium 9.3 (8.5-10.1) mg/dL C-Reactive Protein (0.00-0.90) mg/dL Urine Opiates Screen (NEGATIVE) Ur Oxycodone Screen (NEGATIVE) Urine Methadone Screen (NEGATIVE) Ur Barbiturates Screen (NEGATIVE) Ur Phencyclidine Scrn (NEGATIVE) Ur Amphetamine Screen (NEGATIVE) U Methamphetamines Scrn (NEGATIVE) U Benzodiazepines Scrn (NEGATIVE) U Cocaine Metab Screen (NEGATIVE) U Marijuana (THC) Screen (NEGATIVE) 06/09/19 06/09/19 06/09/19 Range/Units 00:35 00:35 02:30 WBC (4.0-11.0) K/uL RBC (4.50-5.90) M/uL Hgb (13.0-17.0) g/dL Hct (38.0-50.0) % MCV (80.0-98.0) fL MCH (27.0-32.0) pg MCHC (31.0-37.0) g/dL RDW Std Deviation (28.0-62.0) fl RDW Coeff of Ricci (11.0-15.0) % Plt Count (150-400) K/uL MPV (7.40-12.00) fL Neut % (Auto) (48.0-80.0) % Lymph % (Auto) (16.0-40.0) % Kings % (Auto) (0.0-15.0) % Eos % (Auto) (0.0-7.0) % Baso % (Auto) (0.0-1.5) % Neut # (Auto) (1.4-5.7) K/uL Lymph # (Auto) (0.6-2.4) K/uL Kings # (Auto) (0.0-0.8) K/uL Eos # (Auto) (0.0-0.7) K/uL Baso # (Auto) (0.0-0.1) K/uL Nucleated RBC % /100WBC Nucleated RBCs # K/uL ESR (0-14) mm/hr APTT (18.6-31.3) SEC Lactate 0.7 (0.20-2.00) mmol/L Sodium (136-148) mmol/L Potassium (3.5-5.1) mmol/L Chloride (98-107) mmol/L Carbon Dioxide (21.0-32.0) mmol/L BUN (7.0-18.0) mg/dL Creatinine (0.8-1.3) mg/dL Est Cr Clr Drug Dosing mL/min Estimated GFR (MDRD) ml/min Glucose (74-106) mg/dL Calcium (8.5-10.1) mg/dL C-Reactive Protein 6.30 H (0.00-0.90) mg/dL Urine Opiates Screen NEGATIVE (NEGATIVE) Ur Oxycodone Screen NEGATIVE (NEGATIVE) Urine Methadone Screen NEGATIVE (NEGATIVE) Ur Barbiturates Screen NEGATIVE (NEGATIVE) Ur Phencyclidine Scrn NEGATIVE (NEGATIVE) Ur Amphetamine Screen NEGATIVE (NEGATIVE) U Methamphetamines Scrn NEGATIVE (NEGATIVE) U Benzodiazepines Scrn NEGATIVE (NEGATIVE) U Cocaine Metab Screen NEGATIVE (NEGATIVE) U Marijuana (THC) Screen POSITIVE (NEGATIVE) 06/09/19 06/09/19 06/09/19 Range/Units 05:15 05:15 07:10 WBC 10.57 (4.0-11.0) K/uL RBC 4.34 L (4.50-5.90) M/uL Hgb 13.3 (13.0-17.0) g/dL Hct 40.7 (38.0-50.0) % MCV 93.8 (80.0-98.0) fL MCH 30.6 (27.0-32.0) pg MCHC 32.7 (31.0-37.0) g/dL RDW Std Deviation 47.2 (28.0-62.0) fl RDW Coeff of Ricci 14 (11.0-15.0) % Plt Count 208 (150-400) K/uL MPV 12.40 H (7.40-12.00) fL Neut % (Auto) 55.0 (48.0-80.0) % Lymph % (Auto) 35.3 (16.0-40.0) % Kings % (Auto) 8.9 (0.0-15.0) % Eos % (Auto) 0.6 (0.0-7.0) % Baso % (Auto) 0.2 (0.0-1.5) % Neut # (Auto) 5.8 H (1.4-5.7) K/uL Lymph # (Auto) 3.7 H (0.6-2.4) K/uL Kings # (Auto) 0.9 H (0.0-0.8) K/uL Eos # (Auto) 0.1 (0.0-0.7) K/uL Baso # (Auto) 0.0 (0.0-0.1) K/uL Nucleated RBC % 0.0 /100WBC Nucleated RBCs # 0 K/uL ESR (0-14) mm/hr APTT 143.1 H (18.6-31.3) SEC Lactate (0.20-2.00) mmol/L Sodium 141 (136-148) mmol/L Potassium 3.7 (3.5-5.1) mmol/L Chloride 105 (98-107) mmol/L Carbon Dioxide 27.7 (21.0-32.0) mmol/L BUN 9 (7.0-18.0) mg/dL Creatinine 0.8 (0.8-1.3) mg/dL Est Cr Clr Drug Dosing 159.83 mL/min Estimated GFR (MDRD) > 60.0 ml/min Glucose 90 (74-106) mg/dL Calcium 9.2 (8.5-10.1) mg/dL C-Reactive Protein (0.00-0.90) mg/dL Urine Opiates Screen (NEGATIVE) Ur Oxycodone Screen (NEGATIVE) Urine Methadone Screen (NEGATIVE) Ur Barbiturates Screen (NEGATIVE) Ur Phencyclidine Scrn (NEGATIVE) Ur Amphetamine Screen (NEGATIVE) U Methamphetamines Scrn (NEGATIVE) U Benzodiazepines Scrn (NEGATIVE) U Cocaine Metab Screen (NEGATIVE) U Marijuana (THC) Screen (NEGATIVE) Med Orders - Current: Current Medications Acetaminophen (Tylenol) 650 mg PO Q4H PRN PRN Reason: Pain (Mild 1-3)/fever Heparin Sodium/Sodium Chloride (Heparin-1/2ns 25,000 Units/500) 25,000 unit in 500 mls @ 32.658 mls/hr IV TITRATE MELLISSA; Protocol Last Titration: 06/09/19 11:00 Dose: 9 units/kg/hr, 16.329 mls/hr Vancomycin HCl 1.25 gm/ Sodium (Chloride) 250 mls @ 166 mls/hr IV Q8H MELLISSA Last Admin: 06/09/19 08:29 Dose: 166 mls/hr Vancomycin HCl (Pharmacy To Dose - Vancomycin) 1 dose .XX ASDIRECTED MELLISSA Discontinued Medications Heparin Sodium (Porcine) (Heparin Sodium) 5,000 units IVPUSH ONETIME ONE Stop: 06/09/19 00:31 Last Admin: 06/09/19 00:58 Dose: 5,000 units Vancomycin HCl 1 gm/ Sodium (Chloride) 250 mls @ 166 mls/hr IV ONETIME ONE Stop: 06/09/19 01:54 Last Admin: 06/09/19 00:54 Dose: 166 mls/hr Vancomycin HCl 500 mg/ Sodium (Chloride) 100 mls @ 100 mls/hr IV ONETIME ONE Stop: 06/09/19 02:29 Last Admin: 06/09/19 06:25 Dose: Not Given Vancomycin HCl 1 gm/ Sodium (Chloride) 250 mls @ 166 mls/hr IV Q8H [facility] Last Infusion: 06/09/19 08:28 Dose: 0 mls/hr Iopamidol (Isovue Multipack-370 (76%)) 100 ml IVPUSH ONETIME STA Stop: 06/08/19 20:12 Last Admin: 06/08/19 20:33 Dose: 100 ml - Exam General: Alert, Oriented, Cooperative Lungs: Clear to Auscultation, Normal Respiratory Effort. No: Crackles, Wheezing Cardiovascular: Regular Rate, Regular Rhythm GI/Abdominal Exam: Normal Bowel Sounds, Soft, Non-Tender, No Distention Extremities: Other (Mildly erythematous, tender right inguinal region. No pain in calfs bilaterally.) Sepsis Event Note - Evaluation Sepsis Screening Result: No Definite Risk - Focused Exam Vital Signs: Vital Signs Temp Pulse Resp BP Pulse Ox 06/09/19 07:59 36.2 C 61 16 118/68 97 06/09/19 04:39 36.5 C 64 17 121/66 96 06/09/19 02:25 37.3 C 74 17 120/78 99 06/09/19 02:08 98 16 130/84 98 06/09/19 00:53 72 16 132/84 97 Date Exam was Performed: 06/09/19 Time Exam was Performed: 14:30 - Problem List Review Problem List Initiated/Reviewed/Updated: Yes - My Orders Last 24 Hours: My Active Orders 06/09/19 11:20 Consult to Physician [CONS] Routine 06/09/19 11:21 Notify Provider Consults [RC] ASDIRECTED - Plan Plan:: A: 1. DVT, right proximal common femoral vein 2. Mass of unknown etiology, right inguinal region 3. Elevated inflammatory marker P: 1. Continue with Heparin drip for now for right femoral vein DVT with mass of unknown etiology. Possibly, abscess vs adenopathy. Will continue with Vancomycin for now. Consulted with Dr. Salguero [facility] surgery. Recommends outpatient follow-up for FNA. Will need to switch to NOAC or warfarin. Will speak with patient about anticoagulation options. DC possibly tomorrow.
--- NOTE | 2019-06-09 14:03 | PCM.CONS ---
H&P History of Present Illness - General Date of Service: 06/09/19 Admit Problem/Dx: Admission Diagnosis/Problem Admission Diagnosis/Problem Abdominal abscess Source of Information: Patient History Limitations: Reports: No Limitations - History of Present Illness Initial Comments - Free Text/Narative: Patient is a 28-year-old male who presented to the emergency room yesterday with right groin pain and swelling. He denied any trauma to the area. 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 He has a family history of lymphoma. His workup in the ER revealed normal vital signs but swelling tenderness and some redness over the right groin. His white blood count was slightly elevated 11,000 with a slightly elevated neutrophil % of 72 (within our labs normal limits). A CT was performed to rule out a strangulated hernia. However a nonocclusive DVT as well as localized inflammation was noted. There was no mention of a mass or abscess in the groin however an ultrasound was performed today and read by a separate radiologist who felt there was a masslike area within the right groin. He compared this to the CT and noted it there as well. His differential included a subacute hematoma a complex abscess and necrotic lymph node or a possible mass. Today the patient's vital signs are stable. His white blood cell count is now within normal range and the neutrophil percent is down. He was placed on IV vancomycin and heparin. Right Lower Abdomen Pain Score (Numeric/FACES): 2 - Related Data Allergies/Adverse Reactions: Allergies Allergy/AdvReac Type Severity Reaction Status Date / Time No Known Allergies Allergy Verified 06/09/19 03:14 Home Medications: Home Meds . [No Known Home Meds] 11/29/13 [History] Past Medical History - Past Health History Medical/Surgical History: Denies Medical/Surgical History - Infectious Disease History Infectious Disease History: Reports: None - Past Surgical History Other Musculoskeletal Surgeries/Procedures:: elbow surgery when he was 8 Social & Family History - Family History Family Medical History: Noncontributory - Tobacco Use Smoking Status *Q: Former Smoker Years of Tobacco use: 13 Packs/Tins Daily: 1 Used Tobacco, but Quit: Yes Month/Year Tobacco Last Used: 2019 - Caffeine Use Caffeine Use: Reports: Coffee, Soda - Alcohol Use Date of Last Drink: 06/08/19 - Recreational Drug Use Recreational Drug Use: No Recreational Drug Type: Reports: Marijuana/Hashish Other Recreational Drug Type: used today H&P Review of Systems - Review of Systems: Review Of Systems: Comprehensive ROS is negative, except as noted in HPI. Exam - Exam Exam: See Below - Vital Signs Vital Signs: Last Vital Signs Temp 36.6 C 06/09/19 11:00 Pulse 75 06/09/19 11:00 Resp 18 06/09/19 11:00 BP 131/82 06/09/19 11:00 Pulse Ox 96 06/09/19 11:00 Weight: 90.9 kg - Exam General: Alert, Oriented HEENT: Conjunctiva Clear, Mucosa Moist & [place], Posterior Pharynx Clear Lungs: Clear to Auscultation, Normal Respiratory Effort Cardiovascular: Regular Rate, Regular Rhythm GI/Abdominal Exam: Soft, Non-Tender, No Distention, No Mass (Male) Exam: Other (Right groin is tender and swollen. No fluctuance palpated. Mild erythema of the skin. No warmth. ) - Patient Data Lab Results Last 24 hrs: Laboratory Results - last 24 hr 06/08/19 06/08/19 06/09/19 Range/Units 19:40 19:40 00:25 WBC 11.32 H (4.0-11.0) K/uL RBC 4.56 (4.50-5.90) M/uL Hgb 14.0 (13.0-17.0) g/dL Hct 42.7 (38.0-50.0) % MCV 93.6 (80.0-98.0) fL MCH 30.7 (27.0-32.0) pg MCHC 32.8 (31.0-37.0) g/dL RDW Std Deviation 47.1 (28.0-62.0) fl RDW Coeff of Ricci 14 (11.0-15.0) % Plt Count 215 (150-400) K/uL MPV 11.90 (7.40-12.00) fL Neut % (Auto) 72.3 (48.0-80.0) % Lymph % (Auto) 19.2 (16.0-40.0) % [place] % (Auto) 7.9 (0.0-15.0) % Eos % (Auto) 0.4 (0.0-7.0) % Baso % (Auto) 0.2 (0.0-1.5) % Neut # (Auto) 8.2 H (1.4-5.7) K/uL Lymph # (Auto) 2.2 (0.6-2.4) K/uL [place] # (Auto) 0.9 H (0.0-0.8) K/uL Eos # (Auto) 0.0 (0.0-0.7) K/uL Baso # (Auto) 0.0 (0.0-0.1) K/uL Nucleated RBC % 0.0 /100WBC Nucleated RBCs # 0 K/uL ESR 10 (0-14) mm/hr APTT (18.6-31.3) SEC Lactate (0.20-2.00) mmol/L Sodium 141 (136-148) mmol/L Potassium 3.9 (3.5-5.1) mmol/L Chloride 105 (98-107) mmol/L Carbon Dioxide 27.2 (21.0-32.0) mmol/L BUN 11 (7.0-18.0) mg/dL Creatinine 0.8 (0.8-1.3) mg/dL Est Cr Clr Drug Dosing 159.83 mL/min Estimated GFR (MDRD) > 60.0 ml/min Glucose 91 (74-106) mg/dL Calcium 9.3 (8.5-10.1) mg/dL C-Reactive Protein (0.00-0.90) mg/dL Urine Opiates Screen (NEGATIVE) Ur Oxycodone Screen (NEGATIVE) Urine Methadone Screen (NEGATIVE) Ur Barbiturates Screen (NEGATIVE) Ur Phencyclidine Scrn (NEGATIVE) Ur Amphetamine Screen (NEGATIVE) U Methamphetamines Scrn (NEGATIVE) U Benzodiazepines Scrn (NEGATIVE) U Cocaine Metab Screen (NEGATIVE) U Marijuana (THC) Screen (NEGATIVE) 06/09/19 06/09/19 06/09/19 Range/Units 00:35 00:35 02:30 WBC (4.0-11.0) K/uL RBC (4.50-5.90) M/uL Hgb (13.0-17.0) g/dL Hct (38.0-50.0) % MCV (80.0-98.0) fL MCH (27.0-32.0) pg MCHC (31.0-37.0) g/dL RDW Std Deviation (28.0-62.0) fl RDW Coeff of Ricci (11.0-15.0) % Plt Count (150-400) K/uL MPV (7.40-12.00) fL Neut % (Auto) (48.0-80.0) % Lymph % (Auto) (16.0-40.0) % [place] % (Auto) (0.0-15.0) % Eos % (Auto) (0.0-7.0) % Baso % (Auto) (0.0-1.5) % Neut # (Auto) (1.4-5.7) K/uL Lymph # (Auto) (0.6-2.4) K/uL [place] # (Auto) (0.0-0.8) K/uL Eos # (Auto) (0.0-0.7) K/uL Baso # (Auto) (0.0-0.1) K/uL Nucleated RBC % /100WBC Nucleated RBCs # K/uL ESR (0-14) mm/hr APTT (18.6-31.3) SEC Lactate 0.7 (0.20-2.00) mmol/L Sodium (136-148) mmol/L Potassium (3.5-5.1) mmol/L Chloride (98-107) mmol/L Carbon Dioxide (21.0-32.0) mmol/L BUN (7.0-18.0) mg/dL Creatinine (0.8-1.3) mg/dL Est Cr Clr Drug Dosing mL/min Estimated GFR (MDRD) ml/min Glucose (74-106) mg/dL Calcium (8.5-10.1) mg/dL C-Reactive Protein 6.30 H (0.00-0.90) mg/dL Urine Opiates Screen NEGATIVE (NEGATIVE) Ur Oxycodone Screen NEGATIVE (NEGATIVE) Urine Methadone Screen NEGATIVE (NEGATIVE) Ur Barbiturates Screen NEGATIVE (NEGATIVE) Ur Phencyclidine Scrn NEGATIVE (NEGATIVE) Ur Amphetamine Screen NEGATIVE (NEGATIVE) U Methamphetamines Scrn NEGATIVE (NEGATIVE) U Benzodiazepines Scrn NEGATIVE (NEGATIVE) U Cocaine Metab Screen NEGATIVE (NEGATIVE) U Marijuana (THC) Screen POSITIVE (NEGATIVE) 06/09/19 06/09/19 06/09/19 Range/Units 05:15 05:15 07:10 WBC 10.57 (4.0-11.0) K/uL RBC 4.34 L (4.50-5.90) M/uL Hgb 13.3 (13.0-17.0) g/dL Hct 40.7 (38.0-50.0) % MCV 93.8 (80.0-98.0) fL MCH 30.6 (27.0-32.0) pg MCHC 32.7 (31.0-37.0) g/dL RDW Std Deviation 47.2 (28.0-62.0) fl RDW Coeff of Ricci 14 (11.0-15.0) % Plt Count 208 (150-400) K/uL MPV 12.40 H (7.40-12.00) fL Neut % (Auto) 55.0 (48.0-80.0) % Lymph % (Auto) 35.3 (16.0-40.0) % [place] % (Auto) 8.9 (0.0-15.0) % Eos % (Auto) 0.6 (0.0-7.0) % Baso % (Auto) 0.2 (0.0-1.5) % Neut # (Auto) 5.8 H (1.4-5.7) K/uL Lymph # (Auto) 3.7 H (0.6-2.4) K/uL [place] # (Auto) 0.9 H (0.0-0.8) K/uL Eos # (Auto) 0.1 (0.0-0.7) K/uL Baso # (Auto) 0.0 (0.0-0.1) K/uL Nucleated RBC % 0.0 /100WBC Nucleated RBCs # 0 K/uL ESR (0-14) mm/hr APTT 143.1 H (18.6-31.3) SEC Lactate (0.20-2.00) mmol/L Sodium 141 (136-148) mmol/L Potassium 3.7 (3.5-5.1) mmol/L Chloride 105 (98-107) mmol/L Carbon Dioxide 27.7 (21.0-32.0) mmol/L BUN 9 (7.0-18.0) mg/dL Creatinine 0.8 (0.8-1.3) mg/dL Est Cr Clr Drug Dosing 159.83 mL/min Estimated GFR (MDRD) > 60.0 ml/min Glucose 90 (74-106) mg/dL Calcium 9.2 (8.5-10.1) mg/dL C-Reactive Protein (0.00-0.90) mg/dL Urine Opiates Screen (NEGATIVE) Ur Oxycodone Screen (NEGATIVE) Urine Methadone Screen (NEGATIVE) Ur Barbiturates Screen (NEGATIVE) Ur Phencyclidine Scrn (NEGATIVE) Ur Amphetamine Screen (NEGATIVE) U Methamphetamines Scrn (NEGATIVE) U Benzodiazepines Scrn (NEGATIVE) U Cocaine Metab Screen (NEGATIVE) U Marijuana (THC) Screen (NEGATIVE) 06/09/19 Range/Units 12:11 WBC (4.0-11.0) K/uL RBC (4.50-5.90) M/uL Hgb (13.0-17.0) g/dL Hct (38.0-50.0) % MCV (80.0-98.0) fL MCH (27.0-32.0) pg MCHC (31.0-37.0) g/dL RDW Std Deviation (28.0-62.0) fl RDW Coeff of Ricci (11.0-15.0) % Plt Count (150-400) K/uL MPV (7.40-12.00) fL Neut % (Auto) (48.0-80.0) % Lymph % (Auto) (16.0-40.0) % [place] % (Auto) (0.0-15.0) % Eos % (Auto) (0.0-7.0) % Baso % (Auto) (0.0-1.5) % Neut # (Auto) (1.4-5.7) K/uL Lymph # (Auto) (0.6-2.4) K/uL [place] # (Auto) (0.0-0.8) K/uL Eos # (Auto) (0.0-0.7) K/uL Baso # (Auto) (0.0-0.1) K/uL Nucleated RBC % /100WBC Nucleated RBCs # K/uL ESR (0-14) mm/hr APTT 50.9 H (18.6-31.3) SEC Lactate (0.20-2.00) mmol/L Sodium (136-148) mmol/L Potassium (3.5-5.1) mmol/L Chloride (98-107) mmol/L Carbon Dioxide (21.0-32.0) mmol/L BUN (7.0-18.0) mg/dL Creatinine (0.8-1.3) mg/dL Est Cr Clr Drug Dosing mL/min Estimated GFR (MDRD) ml/min Glucose (74-106) mg/dL Calcium (8.5-10.1) mg/dL C-Reactive Protein (0.00-0.90) mg/dL Urine Opiates Screen (NEGATIVE) Ur Oxycodone Screen (NEGATIVE) Urine Methadone Screen (NEGATIVE) Ur Barbiturates Screen (NEGATIVE) Ur Phencyclidine Scrn (NEGATIVE) Ur Amphetamine Screen (NEGATIVE) U Methamphetamines Scrn (NEGATIVE) U Benzodiazepines Scrn (NEGATIVE) U Cocaine Metab Screen (NEGATIVE) U Marijuana (THC) Screen (NEGATIVE) Result Diagrams: 06/09/19 05:15 06/09/19 05:15 Sepsis Event Note - Evaluation Sepsis Screening Result: No Definite Risk - Focused Exam Vital Signs: Vital Signs Temp Pulse Resp BP Pulse Ox 06/09/19 11:00 36.6 C 75 18 131/82 96 06/09/19 07:59 36.2 C 61 16 118/68 97 06/09/19 04:39 36.5 C 64 17 121/66 96 06/09/19 02:25 37.3 C 74 17 120/78 99 06/09/19 02:08 98 16 130/84 98 Date Exam was Performed: 06/09/19 Time Exam was Performed: 15:47 Consult PN Assessment/Plan Procedures: Procedures ASSAY OF AMYLASE (11/18/17) ASSAY OF LIPASE (11/18/17) COMPLETE CBC W/AUTO DIFF WBC (11/18/17) COMPREHEN METABOLIC PANEL (11/18/17) CT ABD & PELV W/CONTRAST (11/18/17) EMERGENCY DEPT VISIT (09/30/18) EMERGENCY DEPT VISIT (11/18/17) EMERGENCY DEPT VISIT (11/29/13) HELICOBACTER PYLORI ANTIBODY (11/18/17) HYDRATE IV INFUSION ADD-ON (11/18/17) ROUTINE VENIPUNCTURE (11/18/17) THER/PROPH/DIAG INJ IV PUSH (11/18/17) TX/PRO/DX INJ NEW DRUG ADDON (11/18/17) X-RAY EXAM OF ANKLE (09/30/18) X-RAY EXAM OF FOOT (09/30/18) X-RAY EXAM OF SHOULDER (11/29/13) (1) DVT (deep venous thrombosis) SNOMED Code(s): 003207230 Code(s): I82.409 - ACUTE EMBOLISM AND THOMBOS UNSP DEEP VN UNSP LOWER EXTREMITY Current Visit: Yes (2) Rt groin pain SNOMED Code(s): 83970690483984313 Code(s): R10.31 - RIGHT LOWER QUADRANT PAIN Current Visit: Yes (3) Right groin mass SNOMED Code(s): 965757305 Code(s): R19.09 - OTHER INTRA-ABDOMINAL AND PELVIC SWELLING, MASS AND LUMP Current Visit: Yes Problem List Initiated/Reviewed/Updated: Yes Plan: I reviewed the images myself and agree with the differential that was given by Dr. Rodriguez. At this time I would treat him for a possible thrombophlebitis with antibiotics as well as therapeutic anticoagulation. When the patient is cleared for discharge he can follow-up with me in clinic after one week. I will reexamine the groin. Likely I will get a repeat ultrasound as an outpatient to follow-up on this lesion. I will discuss the case with our local interventional radiologist sometime this week. The patient should follow-up with his primary care provider as well for management of his DVT. Will sign off at this time. Nothing to do acutely from a surgical standpoint. Call with any questions or concerns.
[2019-06-09] MEDS ORDERED: Warfarin 5 MG Tab PO ONE (18:16)
[2019-06-10] MEDS ORDERED: Heparin Sodium 5,000 Units/ML Vial IVPUSH ONE (01:02)
[2019-06-10 08:53] LABS: BLOOD UREA NITROGEN,BUN 10 mg/dL (7.0-18.0); CARBON DIOXIDE,CO2 25.4 mmol/L (21.0-32.0); CHLORIDE,CL 107 mmol/L (98-107); GLUCOSE RANDOM 98 mg/dL (74-106); POTASSIUM,K 3.7 mmol/L (3.5-5.1); SODIUM,NA 140 mmol/L (136-148)
[2019-06-10] MEDS ORDERED: Warfarin 10 MG Tab PO ONE ×2 (10:40→14:00)
--- NOTE | 2019-06-10 11:04 | PCM.PN ---
- General Info Date of Service: 06/10/19 Subjective Update: No acute events overnight. patient feeling better this morning. no fevers, chest pain, dyspnea. right groin is less tender today. - Patient Data Vitals - Most Recent: Last Vital Signs Temp 36.1 C 06/10/19 07:38 Pulse 70 06/10/19 07:38 Resp 16 06/10/19 07:38 BP 145/80 H 06/10/19 07:38 Pulse Ox 99 06/10/19 07:38 Weight - Most Recent: 90.9 kg I&O - Last 24 Hours: Intake & Output 06/09/19 06/10/19 06/10/19 22:59 06:59 14:59 Intake Total 1300 1683 Output Total 780 450 Balance 520 1233 Lab Results Last 24 Hours: Laboratory Results - last 24 hr 06/09/19 06/09/19 06/09/19 Range/Units 12:11 18:03 18:03 WBC (4.0-11.0) K/uL RBC (4.50-5.90) M/uL Hgb (13.0-17.0) g/dL Hct (38.0-50.0) % MCV (80.0-98.0) fL MCH (27.0-32.0) pg MCHC (31.0-37.0) g/dL RDW Std Deviation (28.0-62.0) fl RDW Coeff of Ricci (11.0-15.0) % Plt Count (150-400) K/uL MPV (7.40-12.00) fL Neut % (Auto) (48.0-80.0) % Lymph % (Auto) (16.0-40.0) % [place] % (Auto) (0.0-15.0) % Eos % (Auto) (0.0-7.0) % Baso % (Auto) (0.0-1.5) % Neut # (Auto) (1.4-5.7) K/uL Lymph # (Auto) (0.6-2.4) K/uL [place] # (Auto) (0.0-0.8) K/uL Eos # (Auto) (0.0-0.7) K/uL Baso # (Auto) (0.0-0.1) K/uL Nucleated RBC % /100WBC Nucleated RBCs # K/uL INR 0.99 APTT 50.9 H 34.5 H (18.6-31.3) SEC Sodium (136-148) mmol/L Potassium (3.5-5.1) mmol/L Chloride (98-107) mmol/L Carbon Dioxide (21.0-32.0) mmol/L BUN (7.0-18.0) mg/dL Creatinine (0.8-1.3) mg/dL Est Cr Clr Drug Dosing mL/min Estimated GFR (MDRD) ml/min Glucose (74-106) mg/dL Calcium (8.5-10.1) mg/dL Vancomycin Trough (5.0-10.0) ug/mL 06/10/19 06/10/19 06/10/19 Range/Units 00:20 05:18 05:18 WBC (4.0-11.0) K/uL RBC (4.50-5.90) M/uL Hgb (13.0-17.0) g/dL Hct (38.0-50.0) % MCV (80.0-98.0) fL MCH (27.0-32.0) pg MCHC (31.0-37.0) g/dL RDW Std Deviation (28.0-62.0) fl RDW Coeff of Ricci (11.0-15.0) % Plt Count (150-400) K/uL MPV (7.40-12.00) fL Neut % (Auto) (48.0-80.0) % Lymph % (Auto) (16.0-40.0) % [place] % (Auto) (0.0-15.0) % Eos % (Auto) (0.0-7.0) % Baso % (Auto) (0.0-1.5) % Neut # (Auto) (1.4-5.7) K/uL Lymph # (Auto) (0.6-2.4) K/uL [place] # (Auto) (0.0-0.8) K/uL Eos # (Auto) (0.0-0.7) K/uL Baso # (Auto) (0.0-0.1) K/uL Nucleated RBC % /100WBC Nucleated RBCs # K/uL INR 1.01 APTT 43.2 H 61.3 H (18.6-31.3) SEC Sodium (136-148) mmol/L Potassium (3.5-5.1) mmol/L Chloride (98-107) mmol/L Carbon Dioxide (21.0-32.0) mmol/L BUN (7.0-18.0) mg/dL Creatinine (0.8-1.3) mg/dL Est Cr Clr Drug Dosing mL/min Estimated GFR (MDRD) ml/min Glucose (74-106) mg/dL Calcium (8.5-10.1) mg/dL Vancomycin Trough (5.0-10.0) ug/mL 06/10/19 06/10/19 06/10/19 Range/Units 08:18 08:18 08:18 WBC 6.73 (4.0-11.0) K/uL RBC 4.22 L (4.50-5.90) M/uL Hgb 13.1 (13.0-17.0) g/dL Hct 39.5 (38.0-50.0) % MCV 93.6 (80.0-98.0) fL MCH 31.0 (27.0-32.0) pg MCHC 33.2 (31.0-37.0) g/dL RDW Std Deviation 46.6 (28.0-62.0) fl RDW Coeff of Ricci 14 (11.0-15.0) % Plt Count 171 (150-400) K/uL MPV 11.70 (7.40-12.00) fL Neut % (Auto) 57.8 (48.0-80.0) % Lymph % (Auto) 34.0 (16.0-40.0) % [place] % (Auto) 6.4 (0.0-15.0) % Eos % (Auto) 1.5 (0.0-7.0) % Baso % (Auto) 0.3 (0.0-1.5) % Neut # (Auto) 3.9 (1.4-5.7) K/uL Lymph # (Auto) 2.3 (0.6-2.4) K/uL [place] # (Auto) 0.4 (0.0-0.8) K/uL Eos # (Auto) 0.1 (0.0-0.7) K/uL Baso # (Auto) 0.0 (0.0-0.1) K/uL Nucleated RBC % 0.0 /100WBC Nucleated RBCs # 0 K/uL INR APTT (18.6-31.3) SEC Sodium 140 (136-148) mmol/L Potassium 3.7 (3.5-5.1) mmol/L Chloride 107 (98-107) mmol/L Carbon Dioxide 25.4 (21.0-32.0) mmol/L BUN 10 (7.0-18.0) mg/dL Creatinine 0.7 L (0.8-1.3) mg/dL Est Cr Clr Drug Dosing 182.67 mL/min Estimated GFR (MDRD) > 60.0 ml/min Glucose 98 (74-106) mg/dL Calcium 9.0 (8.5-10.1) mg/dL Vancomycin Trough 9.4 (5.0-10.0) ug/mL [place] Results Last 24 Hours: Microbiology 06/09/19 00:35 Aerobic Blood Culture - Preliminary Blood - Venous - Lab Draw Anaerobic Blood Culture - Preliminary NO GROWTH AFTER 1 DAY 06/09/19 00:25 Aerobic Blood Culture - Preliminary Blood - Venous NO GROWTH AFTER 1 DAY Anaerobic Blood Culture - Preliminary NO GROWTH AFTER 1 DAY Med Orders - Current: Current Medications Acetaminophen (Tylenol) 650 mg PO Q4H PRN PRN Reason: Pain (Mild 1-3)/fever Last Admin: 06/10/19 03:35 Dose: 650 mg Heparin Sodium/Sodium Chloride (Heparin-1/2ns 25,000 Units/500) 25,000 unit in 500 mls @ 32.658 mls/hr IV TITRATE MELLISSA; Protocol Last Titration: 06/10/19 05:53 Dose: 15 units/kg/hr, 27.215 mls/hr Vancomycin HCl 1.25 gm/ Sodium (Chloride) 250 mls @ 166 mls/hr IV Q8H [facility] Vancomycin HCl (Pharmacy To Dose - Vancomycin) 1 dose .XX ASDIRECTED [facility] Warfarin Sodium (Coumadin Ask) 1 each PO DAILY@1400 [facility] Warfarin Sodium (Coumadin) 10 mg PO DAILY@1400 ONE Stop: 06/10/19 14:01 Discontinued Medications Heparin Sodium (Porcine) (Heparin Sodium) 5,000 units IVPUSH ONETIME ONE Stop: 06/09/19 00:31 Last Admin: 06/09/19 00:58 Dose: 5,000 units Heparin Sodium (Porcine) (Heparin Sodium) 2,500 units IVPUSH BOLUS ONE Stop: 06/09/19 18:54 Last Admin: 06/09/19 19:05 Dose: 2,500 units Heparin Sodium (Porcine) (Heparin Sodium) 1,500 units IVPUSH .BOLUS ONE Stop: 06/10/19 01:03 Last Admin: 06/10/19 01:20 Dose: 1,500 units Vancomycin HCl 1 gm/ Sodium (Chloride) 250 mls @ 166 mls/hr IV ONETIME ONE Stop: 06/09/19 01:54 Last Admin: 06/09/19 00:54 Dose: 166 mls/hr Vancomycin HCl 500 mg/ Sodium (Chloride) 100 mls @ 100 mls/hr IV ONETIME ONE Stop: 06/09/19 02:29 Last Admin: 06/09/19 06:25 Dose: Not Given Vancomycin HCl 1 gm/ Sodium (Chloride) 250 mls @ 166 mls/hr IV Q8H [facility] Last Infusion: 06/09/19 08:28 Dose: 0 mls/hr Vancomycin HCl 1.25 gm/ Sodium (Chloride) 250 mls @ 166 mls/hr IV Q8H [facility] Last Admin: 06/10/19 10:07 Dose: 166 mls/hr Iopamidol (Isovue Multipack-370 (76%)) 100 ml IVPUSH ONETIME STA Stop: 06/08/19 20:12 Last Admin: 06/08/19 20:33 Dose: 100 ml Warfarin Sodium (Coumadin) 5 mg PO ONETIME ONE Stop: 06/09/19 18:17 Last Admin: 06/09/19 18:46 Dose: 5 mg - Exam General: Alert, Oriented, Cooperative Lungs: Clear to Auscultation, Normal Respiratory Effort. No: Crackles, Wheezing Cardiovascular: Regular Rate, Regular Rhythm GI/Abdominal Exam: Normal Bowel Sounds, Soft, Non-Tender, No Distention (Male) Exam: Other (Right inguinal area looks less erythematous, swollen. Mild tenderness to palpation.) Extremities: Normal Inspection, No Pedal Edema Sepsis Event Note - Evaluation Sepsis Screening Result: No Definite Risk - Focused Exam Vital Signs: Vital Signs Temp Pulse Resp BP Pulse Ox Pulse Ox 06/10/19 07:38 36.1 C 70 16 145/80 H 99 06/10/19 03:00 36.6 C 82 16 120/68 96 06/10/19 01:27 96 Date Exam was Performed: 06/10/19 Time Exam was Performed: 14:20 - Problem List Review Problem List Initiated/Reviewed/Updated: Yes - My Orders Last 24 Hours: My Active Orders 06/09/19 11:20 Consult to Physician [CONS] Routine 06/09/19 11:21 Notify Provider Consults [RC] ASDIRECTED 06/10/19 11:02 aPTT [PTT,PARTIAL THROMBOPLSTIN TIME] [COAG] Stat 06/10/19 14:00 Warfarin Dosing [Coumadin Ask] 1 each PO DAILY@1400 Warfarin [Coumadin] 10 mg PO DAILY@1400 ONE 06/11/19 05:11 INR,PT,PROTHROMBIN TIME [COAG] AM - Plan Plan:: A: 1. DVT, right proximal common femoral vein 2. Right inguinal phlebitis 3. Mass of unknown etiology, right inguinal region 4. Gram + cocci in clusters bacteremia, 1 of 4 vials P: 1. Bacteremia likely a contaminant since 1 of 4 vials were positive. No fevers or white count. Continue with vancomycin for now. Pending repeat blood culture results. Will likely DC tomorrow on warfarin and Lovenox bridge for right femoral vein DVT. F/u with Dr. Salguero in clinic to reassess right inguinal mass. dispo: like dc tomorrow.
[2019-06-10] MEDS: Heparin Sod,Pork In 0.45% Nacl 25,000 UNIT/500 ML IV.SOLN IV SCH (16:50)
[2019-06-11 06:21] LABS: BLOOD UREA NITROGEN,BUN 8 mg/dL (7.0-18.0); CARBON DIOXIDE,CO2 25.5 mmol/L (21.0-32.0); CHLORIDE,CL 108 mmol/L (98-107); GLUCOSE RANDOM 100 mg/dL (74-106); POTASSIUM,K 3.9 mmol/L (3.5-5.1); SODIUM,NA 143 mmol/L (136-148)
--- NOTE | 2019-06-11 07:23 | PCM.DCSUM1 ---
Discharge Summary - Hospital Course Free Text/Narrative:: 28 y/o male who presented to the ER complaining of right groin pain. Found to have right femoral vein DVT in addition to a mass of unknown etiology measuring approximately 2cm x 3cm. He was anticoagulated with Heparin drip and bridged with warfarin. In addition, he was started on Vancomycin for suspected thrombophlebitis. Blood cultures were obtained and 1 of 4 vials was positive for gram positive cocci in clusters thought to be a contaminant. Repeat blood cultures were negative. General surgery was consulted and Dr. Salguero recommended outpatient follow-up to re-evaluate the right groin mass. He was transitioned to full dose Lovenox 135 mg SQ daily and continued on warfarin. At time of discharge INR was 1.10 with goal INR of 2-3. In addition, he was prescribed Clindamycin. He was advised to follow-up with [facility] and his PCP. - Discharge Data Discharge Date: 06/11/19 Discharge Disposition: Home, Self-Care 01 Condition: Good - Referral to Home Health Primary Care Physician: PCP None - Patient Summary/Data Consults: Consultations 06/09/19 11:20 Consult to Physician [CONS] Routine - Patient Instructions Diet: Regular Diet as Tolerated, Drink 8-10+ Glasses/Day Activity: As Tolerated Notify Provider of: Fever, Increased Pain, Swelling and Redness, Nausea and/or Vomiting - Discharge Plan Prescriptions/Med Rec: Clindamycin HCl 300 mg PO TID 5 Days #15 capsule Enoxaparin Sodium [Lovenox] 135 mg SQ DAILY 8 Days #8 ml Warfarin [Coumadin] 10 mg PO DAILY 15 Days #15 tab Home Medications: Home Meds Clindamycin HCl 300 mg PO TID 5 Days #15 capsule 06/11/19 [Rx] Enoxaparin Sodium [Lovenox] 135 mg SQ DAILY 8 Days #8 ml 06/11/19 [Rx] Warfarin [Coumadin] 10 mg PO DAILY 15 Days #15 tab 06/11/19 [Rx] Patient Handouts: Clindamycin capsules, Enoxaparin injection, Warfarin tablets , Deep Vein Thrombosis Referrals: Raquel Stanford NP [Nurse Practitioner] - 06/16/19 11:00 am Sarai Salguero MD [Physician] - 06/20/19 8:00 am (Arrive 15 minutes early with a photo ID and insurance card. ) - Discharge Summary/Plan Comment DC Time >30 min.: No - Patient Data Vitals - Most Recent: Last Vital Signs Temp 35.9 C L 06/11/19 07:11 Pulse 55 L 06/11/19 07:11 Resp 16 06/11/19 07:11 BP 128/64 06/11/19 07:11 Pulse Ox 96 06/11/19 07:11 Weight - Most Recent: 90.9 kg I&O - Last 24 hours: Intake & Output 06/10/19 06/11/19 06/11/19 22:59 06:59 14:59 Intake Total 880 850 Output Total 0 1350 Balance 880 -500 Lab Results - Last 24 hrs: Laboratory Results - last 24 hr 06/10/19 06/10/19 06/10/19 Range/Units 08:18 08:18 08:18 WBC 6.73 (4.0-11.0) K/uL RBC 4.22 L (4.50-5.90) M/uL Hgb 13.1 (13.0-17.0) g/dL Hct 39.5 (38.0-50.0) % MCV 93.6 (80.0-98.0) fL MCH 31.0 (27.0-32.0) pg MCHC 33.2 (31.0-37.0) g/dL RDW Std Deviation 46.6 (28.0-62.0) fl RDW Coeff of Ricci 14 (11.0-15.0) % Plt Count 171 (150-400) K/uL MPV 11.70 (7.40-12.00) fL Neut % (Auto) 57.8 (48.0-80.0) % Lymph % (Auto) 34.0 (16.0-40.0) % [place] % (Auto) 6.4 (0.0-15.0) % Eos % (Auto) 1.5 (0.0-7.0) % Baso % (Auto) 0.3 (0.0-1.5) % Neut # (Auto) 3.9 (1.4-5.7) K/uL Lymph # (Auto) 2.3 (0.6-2.4) K/uL [place] # (Auto) 0.4 (0.0-0.8) K/uL Eos # (Auto) 0.1 (0.0-0.7) K/uL Baso # (Auto) 0.0 (0.0-0.1) K/uL Nucleated RBC % 0.0 /100WBC Nucleated RBCs # 0 K/uL INR APTT (18.6-31.3) SEC Sodium 140 (136-148) mmol/L Potassium 3.7 (3.5-5.1) mmol/L Chloride 107 (98-107) mmol/L Carbon Dioxide 25.4 (21.0-32.0) mmol/L BUN 10 (7.0-18.0) mg/dL Creatinine 0.7 L (0.8-1.3) mg/dL Est Cr Clr Drug Dosing 182.67 mL/min Estimated GFR (MDRD) > 60.0 ml/min Glucose 98 (74-106) mg/dL Calcium 9.0 (8.5-10.1) mg/dL Vancomycin Trough 9.4 (5.0-10.0) ug/mL 06/10/19 06/10/19 06/10/19 Range/Units 11:12 17:06 22:49 WBC (4.0-11.0) K/uL RBC (4.50-5.90) M/uL Hgb (13.0-17.0) g/dL Hct (38.0-50.0) % MCV (80.0-98.0) fL MCH (27.0-32.0) pg MCHC (31.0-37.0) g/dL RDW Std Deviation (28.0-62.0) fl RDW Coeff of Ricci (11.0-15.0) % Plt Count (150-400) K/uL MPV (7.40-12.00) fL Neut % (Auto) (48.0-80.0) % Lymph % (Auto) (16.0-40.0) % [place] % (Auto) (0.0-15.0) % Eos % (Auto) (0.0-7.0) % Baso % (Auto) (0.0-1.5) % Neut # (Auto) (1.4-5.7) K/uL Lymph # (Auto) (0.6-2.4) K/uL [place] # (Auto) (0.0-0.8) K/uL Eos # (Auto) (0.0-0.7) K/uL Baso # (Auto) (0.0-0.1) K/uL Nucleated RBC % /100WBC Nucleated RBCs # K/uL INR APTT 60.8 H 49.9 H 50.7 H (18.6-31.3) SEC Sodium (136-148) mmol/L Potassium (3.5-5.1) mmol/L Chloride (98-107) mmol/L Carbon Dioxide (21.0-32.0) mmol/L BUN (7.0-18.0) mg/dL Creatinine (0.8-1.3) mg/dL Est Cr Clr Drug Dosing mL/min Estimated GFR (MDRD) ml/min Glucose (74-106) mg/dL Calcium (8.5-10.1) mg/dL Vancomycin Trough (5.0-10.0) ug/mL 06/11/19 06/11/19 06/11/19 Range/Units 05:59 05:59 05:59 WBC 7.39 (4.0-11.0) K/uL RBC 4.45 L (4.50-5.90) M/uL Hgb 13.6 (13.0-17.0) g/dL Hct 41.7 (38.0-50.0) % MCV 93.7 (80.0-98.0) fL MCH 30.6 (27.0-32.0) pg MCHC 32.6 (31.0-37.0) g/dL RDW Std Deviation 46.2 (28.0-62.0) fl RDW Coeff of Ricci 13 (11.0-15.0) % Plt Count 203 (150-400) K/uL MPV 11.80 (7.40-12.00) fL Neut % (Auto) 51.3 (48.0-80.0) % Lymph % (Auto) 39.9 (16.0-40.0) % [place] % (Auto) 7.0 (0.0-15.0) % Eos % (Auto) 1.5 (0.0-7.0) % Baso % (Auto) 0.3 (0.0-1.5) % Neut # (Auto) 3.8 (1.4-5.7) K/uL Lymph # (Auto) 3.0 H (0.6-2.4) K/uL [place] # (Auto) 0.5 (0.0-0.8) K/uL Eos # (Auto) 0.1 (0.0-0.7) K/uL Baso # (Auto) 0.0 (0.0-0.1) K/uL Nucleated RBC % 0.0 /100WBC Nucleated RBCs # 0 K/uL INR 1.10 APTT (18.6-31.3) SEC Sodium 143 (136-148) mmol/L Potassium 3.9 (3.5-5.1) mmol/L Chloride 108 H (98-107) mmol/L Carbon Dioxide 25.5 (21.0-32.0) mmol/L BUN 8 (7.0-18.0) mg/dL Creatinine 0.8 (0.8-1.3) mg/dL Est Cr Clr Drug Dosing 159.83 mL/min Estimated GFR (MDRD) > 60.0 ml/min Glucose 100 (74-106) mg/dL Calcium 8.9 (8.5-10.1) mg/dL Vancomycin Trough (5.0-10.0) ug/mL 06/11/19 Range/Units 05:59 WBC (4.0-11.0) K/uL RBC (4.50-5.90) M/uL Hgb (13.0-17.0) g/dL Hct (38.0-50.0) % MCV (80.0-98.0) fL MCH (27.0-32.0) pg MCHC (31.0-37.0) g/dL RDW Std Deviation (28.0-62.0) fl RDW Coeff of Ricci (11.0-15.0) % Plt Count (150-400) K/uL MPV (7.40-12.00) fL Neut % (Auto) (48.0-80.0) % Lymph % (Auto) (16.0-40.0) % [place] % (Auto) (0.0-15.0) % Eos % (Auto) (0.0-7.0) % Baso % (Auto) (0.0-1.5) % Neut # (Auto) (1.4-5.7) K/uL Lymph # (Auto) (0.6-2.4) K/uL [place] # (Auto) (0.0-0.8) K/uL Eos # (Auto) (0.0-0.7) K/uL Baso # (Auto) (0.0-0.1) K/uL Nucleated RBC % /100WBC Nucleated RBCs # K/uL INR APTT 53.9 H (18.6-31.3) SEC Sodium (136-148) mmol/L Potassium (3.5-5.1) mmol/L Chloride (98-107) mmol/L Carbon Dioxide (21.0-32.0) mmol/L BUN (7.0-18.0) mg/dL Creatinine (0.8-1.3) mg/dL Est Cr Clr Drug Dosing mL/min Estimated GFR (MDRD) ml/min Glucose (74-106) mg/dL Calcium (8.5-10.1) mg/dL Vancomycin Trough (5.0-10.0) ug/mL MELYSSA Results - Last 24 hrs: Microbiology 06/10/19 05:29 Aerobic Blood Culture - Preliminary Blood - Venous NO GROWTH AFTER 1 DAY Anaerobic Blood Culture - Preliminary NO GROWTH AFTER 1 DAY 06/10/19 05:18 Aerobic Blood Culture - Preliminary Blood - Venous - Lab Draw NO GROWTH AFTER 1 DAY Anaerobic Blood Culture - Preliminary NO GROWTH AFTER 1 DAY 06/09/19 00:35 Aerobic Blood Culture - Preliminary Blood - Venous - Lab Draw Anaerobic Blood Culture - Preliminary NO GROWTH AFTER 2 DAYS 06/09/19 00:25 Aerobic Blood Culture - Preliminary Blood - Venous NO GROWTH AFTER 2 DAYS Anaerobic Blood Culture - Preliminary NO GROWTH AFTER 2 DAYS Med Orders - Current: Current Medications Acetaminophen (Tylenol) 650 mg PO Q4H PRN PRN Reason: Pain (Mild 1-3)/fever Last Admin: 06/10/19 03:35 Dose: 650 mg Heparin Sodium/Sodium Chloride (Heparin-1/2ns 25,000 Units/500) 25,000 unit in 500 mls @ 32.658 mls/hr IV TITRATE MELLISSA; Protocol Last Admin: 06/10/19 16:50 Dose: 15 units/kg/hr, 27.215 mls/hr Vancomycin HCl 1.25 gm/ Sodium (Chloride) 250 mls @ 166 mls/hr IV Q8H [facility] Last Admin: 06/11/19 02:10 Dose: 166 mls/hr Vancomycin HCl (Pharmacy To Dose - Vancomycin) 1 dose .XX ASDIRECTED [facility] Warfarin Sodium (Coumadin Ask) 1 each PO DAILY@1400 MELLISSA Last Admin: 06/10/19 14:18 Dose: Not Given Discontinued Medications Heparin Sodium (Porcine) (Heparin Sodium) 5,000 units IVPUSH ONETIME ONE Stop: 06/09/19 00:31 Last Admin: 06/09/19 00:58 Dose: 5,000 units Heparin Sodium (Porcine) (Heparin Sodium) 2,500 units IVPUSH BOLUS ONE Stop: 06/09/19 18:54 Last Admin: 06/09/19 19:05 Dose: 2,500 units Heparin Sodium (Porcine) (Heparin Sodium) 1,500 units IVPUSH .BOLUS ONE Stop: 06/10/19 01:03 Last Admin: 06/10/19 01:20 Dose: 1,500 units Vancomycin HCl 1 gm/ Sodium (Chloride) 250 mls @ 166 mls/hr IV ONETIME ONE Stop: 06/09/19 01:54 Last Admin: 06/09/19 00:54 Dose: 166 mls/hr Vancomycin HCl 500 mg/ Sodium (Chloride) 100 mls @ 100 mls/hr IV ONETIME ONE Stop: 06/09/19 02:29 Last Admin: 06/09/19 06:25 Dose: Not Given Vancomycin HCl 1 gm/ Sodium (Chloride) 250 mls @ 166 mls/hr IV Q8H [facility] Last Infusion: 06/09/19 08:28 Dose: 0 mls/hr Vancomycin HCl 1.25 gm/ Sodium (Chloride) 250 mls @ 166 mls/hr IV Q8H [facility] Last Infusion: 06/10/19 12:36 Dose: Infused Iopamidol (Isovue Multipack-370 (76%)) 100 ml IVPUSH ONETIME STA Stop: 06/08/19 20:12 Last Admin: 06/08/19 20:33 Dose: 100 ml Warfarin Sodium (Coumadin) 5 mg PO ONETIME ONE Stop: 06/09/19 18:17 Last Admin: 06/09/19 18:46 Dose: 5 mg Warfarin Sodium (Coumadin) 10 mg PO DAILY@1400 ONE Stop: 06/10/19 14:01 Last Admin: 06/10/19 14:18 Dose: 10 mg
[2019-06-11] MEDS ORDERED: Enoxaparin 100 MG/1 ML Syringe SUBCUT SCH (12:00)
[2019-06-11] MEDS ORDERED: Enoxaparin 150 MG/1 ML Syringe SUBCUT SCH ×2 (12:00→12:15)
[2019-06-11] MEDS ORDERED: Warfarin 10 MG Tab PO ONE (14:00)
== END 2019-06-11 15:45 | disposition home or self-care (01) | DRG 301 ==
LOC: MW.ED 19:04 → MW.MS 23:46
PROVIDERS: ADMIT Internal Medicine; ATTEND Internal Medicine
DX: I82.411 Acute embolism and thrombosis of right femoral vein (principal); R22.41 Localized swelling, mass and lump, right lower limb; Z87.891 Personal history of nicotine dependence; Z79.01 Long term (current) use of anticoagulants
CPT/HCPCS: 36415; 74177; 74177-26; 80048; 80202; 80305-QW; 83605; 85025; 85610; 85652; 85730; 86140; 87040; 93971-26-RT; 93971-RT; 99283; 99285-25; A9270-GY; J1644; J1650; J3370; J7050; Q9967

== ENCOUNTER 2022-09-13 13:21 | Emergency (ER) | payer BC, MEDICAID ==
[2022-09-13] MEDS ORDERED: Cephalexin 500 MG Cap PO ONE (14:42)
[2022-09-13] MEDS ORDERED: Ibuprofen 600 MG Tab PO ONE (14:42)
[2022-09-13] MEDS ORDERED: traMADol 50 MG Tab PO ONE (14:43)
== END 2022-09-13 15:11 | disposition home or self-care (01) ==
LOC: MW.ED 13:21
DX: K04.7 Periapical abscess without sinus (principal); F17.210 Nicotine dependence, cigarettes, uncomplicated
CPT/HCPCS: 99282; A9270

== ENCOUNTER 2023-04-14 17:29 | Emergency (ER) | payer MEDICAID | END 2023-04-14 20:07 | disposition left against medical advice (07) | LOC: MW.ED 17:29 | DX: Z53.21 Procedure and treatment not carried out due to patient leaving prior to being seen by health care provider (principal) | CPT/HCPCS: 73630-26-LT; 73630-LT ==

== ENCOUNTER 2023-11-27 19:01 | Emergency (ER) | payer MEDICAID, OTHER | END 2023-11-27 20:34 | LOC: MW.ED 19:01 | DX: Z02.89 Encounter for other administrative examinations (principal); S70.312A Abrasion, left thigh, initial encounter; Z75.8 Other problems related to medical facilities and other health care; V13.4XXA Pedal cycle driver injured in collision with car, pick-up truck or van in traffic accident, initial encounter; Y92.410 Unspecified street and highway as the place of occurrence of the external cause; Y93.55 Activity, bike riding | CPT/HCPCS: 99283; 99284 ==